=== PATIENT | male | born 1960 | race Caucasian/White ===

== ENCOUNTER 2024-11-15 08:10 | Emergency (ER) | payer MEDICAID, SELFPAY ==
[2024-11-15 08:49] VITALS: BP 113/74; PULSE 64; RESP 18; TEMP 36.5; O2SAT 97; BMI 29.1
--- NOTE | 2024-11-15 09:07 | PD.EDADULT ---
ED General RME/HPI General Chief complaint: Abdominal Pain Stated complaint: Abdominal pain left side, diarrhea Time Seen by Provider: 11/15/24 08:20 Arrival date/time: 11/15/24 08:10 Limitations: no limitations RME / HPI RME / HPI narrative: DR. DELCID MAIN ED EVALUATION: 64 year old male presents to the Emergency Department with complaint of left flank pain/ left abdomen pain onset 7 days. He states he has been Tylenol for pain with little relief. Associated symptoms include rectal pain, burning. PMHx: Diabetes Social Hx: No tobacco, alcohol, or substance use. Related Data Home Medications ?Medication ?Instructions ?Recorded ?Confirmed metformin 1,000 mg tablet 1,000 mg PO BID #0 tabs 11/25/13 12/20/19 (Glucophage) amlodipine 10 mg tablet 10 mg PO QDAY 12/20/19 12/20/19 lisinopril 20 1 tab PO QDAY 12/20/19 12/20/19 mg-hydrochlorothiazide 25 mg tablet tamsulosin 0.4 mg capsule 0.4 mg PO QDAY 12/20/19 12/20/19 Allergies Allergy/AdvReac Type Severity Reaction Status Date / Time No Known Allergies Allergy Verified 11/15/24 08:16 Review of Systems Review of Systems Systems Reviewed: All systems reviewed, normal except as documented Past Medical History Past Medical History CARDIAC: Positive Hypertension GENITOURINARY: Positive Benign Prostatic Hyperplasia ENDOCRINE: Positive Diabetes Mellitus Type 2 Social History SMOKING STATUS: Never smoker SUBSTANCE USE: does not use ALCOHOL: Never ED Exam General Limitations: Present no limitations General appearance: Present alert and in no apparent distress Head Head exam: Present atraumatic, normocephalic and normal inspection Eye Eye exam: Present normal appearance, PERRL and EOMI ENT ENT exam: Present normal exam, normal oropharynx and mucous membranes moist Neck Neck exam: Present normal inspection, full ROM and trachea midline Chest Chest inspection: Present normal inspection and symmetric chest wall rise Respiratory Respiratory exam: Present normal lung sounds bilaterally Cardiovascular Cardiovascular exam: Present regular rate, normal rhythm and normal heart sounds Abdominal Exam Abdominal exam: Present soft and normal bowel sounds Extremities Exam Extremities exam: Present normal inspection and full ROM Back Exam Back exam: Present normal inspection and full ROM Neurological Exam Neurological exam: Present alert, oriented X3 and CN II-XII intact Psychiatric Psychiatric exam: Present normal affect and normal mood Skin Skin exam: Present warm, dry, intact and normal color Course Quality Measures none Orders Category Date Time Status CT abdomen pelvis wo con Stat Exams 11/15/24 09:06 Completed Vital Signs Vital signs: Vital Signs Temperature 97.7 F 11/15/24 08:49 Pulse Rate 64 11/15/24 08:49 Respiratory Rate 18 11/15/24 08:49 Blood Pressure 113/74 11/15/24 08:49 Pulse Oximetry (%) 97 11/15/24 08:49 Oxygen Delivery Method Room Air 11/15/24 08:49 Discharge Plan Plan Patient Disposition: HOME (Self Care) Prescriptions/Referrals Prescriptions/Med Rec: No Action metformin [Glucophage] 1,000 MG tablet 1,000 mg PO BID Qty: 0 tamsulosin 0.4 mg Capsule 0.4 mg PO QDAY amlodipine 10 mg Tablet 10 mg PO QDAY lisinopril-hydrochlorothiazide 20-25 mg Tablet 1 tab PO QDAY Referrals: Woody Espinosa MD [Primary Care Provider] - In 1 week Problem List Clinical Impression: BPH (benign prostatic hyperplasia), Bloated abdomen Patient/Caregiver Discharge Instructions Education Materials: Benign Prostatic Hyperplasia, ED Excess Gas Print Language: Albanian Stand Alone Forms: [employer] Award Info., Patient Portal Info Letter MDM Clinical Information Provided by patient Medical Records Reviewed [facility] Meds/Rx Considered, not Ordered None Labs/Rad/Tests considered, not Ordered None Chronic Illness/Social Conditions Add or document further as needed: Diabetes EKG EKG not done Lab Interpretation Labs: none Imaging Radiology reports / interpretation(s): Procedure(s): CT abdomen pelvis wo con Accession Number(s): [id number] cc: Woody Espinosa MD; Alessandro Delcid MD; Gualberto Holland MD~ Examination: CT abdomen and pelvis without contrast. Coronal 3-D reconstructions. Sagittal 2-D reconstructions. Date and time of exam: November 15, 2024, 0932 hrs. Indications -: Left elbow pain beginning 4 days ago CTDI: vol (mGy): 8 DLP: (mGycm): 436 Technique: Axial images of the abdomen have been obtained, 3 mm slice thickness Intravenous contrast material has not been administered. Low dose protocols were performed. One or more of the following dose reduction techniques were used; automated exposure control, adjustment of the mA and/or KV according to patient size, use of iterative reconstruction technique. Findings: Diffuse fatty infiltration throughout the liver No splenic or pancreatic mass Contracted gallbladder. Normal adrenal glands. No renal or ureteral calculi, no hydronephrosis. Aorta normal size. Normal appendix. No bowel obstruction. No diverticulitis. Marked prostatomegaly, transverse dimension 6 cm Mild thickening of urinary bladder wall Large fat-containing left inguinal hernia. Grade 1 spondylolisthesis L5 on S1 Impression: No renal or ureteral calculi, no hydronephrosis Normal appendix Marked prostatomegaly Mild thickening of urinary bladder wall, likely early urinary tract outflow obstruction secondary to prostatomegaly Dictated By: Gualberto Holland MD Medication Administration(s) none Diagnosis Differential diagnosis: diverticulitis, kidney stone, prostatomegaly Most likely dx, and/or detailed dx discussion: BPH Bloated abdomen Dispositon Disposition: Discharge Home
== END 2024-11-15 12:17 | disposition home or self-care (01) ==
PROVIDERS: Emergency Provider Emergency Medicine; PCP Family Medicine
DX: N40.0 Benign prostatic hyperplasia without lower urinary tract symptoms (principal); R14.0 Abdominal distension (gaseous); E11.9 Type 2 diabetes mellitus without complications; K76.0 Fatty (change of) liver, not elsewhere classified; K40.90 Unilateral inguinal hernia, without obstruction or gangrene, not specified as recurrent; M43.17 Spondylolisthesis, lumbosacral region
CPT/HCPCS: 74176; 99284

== ENCOUNTER 2025-01-17 10:26 | Emergency (ER) | payer MEDICAID, SELFPAY ==
[2025-01-17 11:10] VITALS: BP 135/83; PULSE 59; RESP 16; TEMP 37.1; O2SAT 96; BMI 27.8
--- NOTE | 2025-01-17 11:37 | PD.EDRME ---
Rapid Medical Screening Exam RME Arrival date/time: 01/17/25 10:26 This is a 64-year-old male that comes into the emergency room with complaints of lower abdominal pain, pain with urination headache and feels itchy throughout his body sometimes. Patient has a history of high blood pressure, diabetes, and BPH. I have greeted and performed a focused initial assessment of this patient. Initial appropriate labs ordered at this time. A comprehensive ED assessment and evaluation of the patient and analysis of all test and completion of medical decision making process will be conducted by additional ED provider. Chief Complaint: General Adult/Misc Complain Time Seen by Provider: 01/17/25 11:08 Vital signs: Vital Signs Temperature 98.7 F 01/17/25 11:10 Pulse Rate 59 L 01/17/25 11:10 Respiratory Rate 16 01/17/25 11:10 Blood Pressure 135/83 H 01/17/25 11:10 Pulse Oximetry (%) 96 01/17/25 11:10 Oxygen Delivery Method Room Air 01/17/25 11:10
[2025-01-17] MEDS: IBUPROFEN TAB 400 MG TABLET 800 MG PO (11:50)
[2025-01-17] MEDS: ACETAMINOPHEN 500 MG TABLET 1000 MG PO (11:50)
[2025-01-17 12:01] LABS: Collection Type, Urine Voided; Squamous Epithelial Cell,Urine 0 /hpf (0-5); WBC,Urine 0 /hpf (0-5)
[2025-01-17 12:03] LABS: Basophils # (Auto) 0.1 Thou/mm3 (0.0-0.2); Basophils % (Auto) 1 % (0-2.5); Eosinophils # (Auto) 0.4 Thou/mm3 (0.0-0.5); Eosinophils % (Auto) 6 % (0-10); Hematocrit 40.3 % (41.0-53.0); Hemoglobin 13.4 g/dL (13.5-16.0); Immature Granulocytes Auto 0.01 Thou/mm3 (0.00-0.00); Lymphocytes # (Auto) 1.3 Thou/mm3 (1.0-4.8); Lymphocytes % (Auto) 19 % (10-50); Mean Corpuscular HGB Conc 33.3 g/dl (31.0-37.0); Mean Corpuscular Hemoglobin 30.4 pg (25.0-35.0); Mean Corpuscular Volume 91 fL (80-100); Monocytes # (Auto) 0.6 Thou/mm3 (0.0-0.8); Monocytes % (Auto) 9 % (0-12); Neutrophils # (Auto) 4.7 Thou/mm3 (1.8-7.7); Neutrophils % (Auto) 67 % (37-80); Nucleated Red Blood Cell # 0.00 Thou/mm3 (0.00-0.00); Nucleated Red Blood Cell % 0 /100 WBC (0); Platelet Count 248 Thou/mm3 (140-440); RDW Standard Deviation 40.7 fL (35.1-43.9); Red Blood Count 4.41 Miln/mm3 (4.50-5.90); White Blood Count 7.1 Thou/mm3 (3.8-10.6)
[2025-01-17 12:29] LABS: Bilirubin,Urine Negative (Negative); Blood,Urine Negative (Negative); Clarity,Urine Clear (Clear/Hazy); Color,Urine Lt-Yellow (Lt Yel-Yel); Culture Indicated,Urine Not Indicated; Glucose, Urine 4+ (Negative); Ketones,Urine Negative (Negative); Leukocyte Esterase,Urine Negative (Negative); Nitrite,Urine Negative (Negative); PH,Urine 6.0 (5.0-7.0); Protein,Urine Negative (Neg - Trace); RBC,Urine < 1 /hpf (0-3); Specific Gravity,Urine 1.024 (1.001-1.035); Urobilinogen,Urine Negative mg/dL (0.0-1.0)
[2025-01-17 12:31] LABS: Alanine Aminotransferase 22 U/L (10-49); Albumin, Serum 4.7 gm/dL (3.4-4.8); Albumin/Globulin Ratio 1.6 (1.2-2.2); Alkaline Phosphatase 93 U/L (46-116); Anion Gap 10 (7-16); Aspartate Amino Transferase 25 U/L (0-34); BUN/Creatinine Ratio 23 Ratio (12-20); Bilirubin,Total 0.8 mg/dL (0.3-1.2); Blood Urea Nitrogen 27 mg/dL (9-23); Calcium 10.2 mg/dL (8.3-10.6); Calcium (Corrected) 10.2 mg/dL (8.5-10.1); Carbon Dioxide 23.8 mMol/L (20.0-31.0); Chloride 103 mMol/L (98-107); Creatinine (Component) 1.2 mg/dL (0.6-1.3); Estimated Creatinine Clearance 59.1 mL/min (>60); Globulin 3.0 gm/dL (2.3-3.5); Glucose 240 mg/dL (74-106); Lipase 60 U/L (12-53); Osmolality,Calculated 286 (275-295); Potassium 5.0 mMol/L (3.4-5.1); Sodium 137 mMol/L (136-145); Total Protein 7.7 gm/dL (5.7-8.2); eGFR > 60 See Note
--- NOTE | 2025-01-17 13:46 | XR_ITS ---
Examination: CT brain head without contrast. 2-D sagittal coronal reconstructions Date and time of exam:January 17, 2025 1502 hrs. Indications: Headaches beginning last night CTDI: vol (mGy):48.8 DLP: (mGycm):920 Technique: Multiple CT axial sections of the brain have been obtained, 5 mm slice thickness. Contrast has not been administered. 2-D sagittal, coronal reconstructions have been obtained Low dose protocols were performed. One or more of the following dose reduction techniques were used; automated exposure control, adjustment of the mA and/or KV according to patient size, use of iterative reconstruction technique. Findings: No significant ventricular enlargement. Intra-axial or extra-axial hemorrhage density is not seen. No mass effect or midline shift Basal cisterns are not remarkable. Fourth ventricle is midline. Cranial vault intact. Impression: Negative for acute hemorrhage, mass effect or midline shift
--- NOTE | 2025-01-17 13:47 | EDNOTE_ITS ---
<Statement entered by Mary Hines MD - 01/18/25 06:24> As co-signing physician, I was present and available for consult prn. I concur with the plan and care as documented by the midlevel provider. ED General RME/HPI General Chief complaint: General Adult/Misc Complain Stated complaint: BARCLAY, infection in prostate, abd. pain Time Seen by Provider: 01/17/25 11:08 Arrival date/time: 01/17/25 10:26 RME / HPI RME / HPI narrative: 64-year-old male patient with significant history of hypertension diabetes BPH, came in for evaluation regarding headache. Patient's been having headache for 8 days, posterior location, severity is 7 out of 10 and described as pulsating. Patient also complained of dysuria and pelvic pain and itchiness for several weeks, it comes and goes. Denies any fever denies any vomiting denies any other complaints no medications taken prior to arrival. Denies any fever also. Currently taking Flomax for BPH. Related Data Home Medications ?Medication ?Instructions ?Recorded ?Confirmed metformin 1,000 mg tablet 1,000 mg PO BID #0 tabs 11/0312/20/19 (Glucophage) amlodipine 10 mg tablet 10 mg PO QDAY 12/20/1912/19 lisinopril 20 1 tab PO QDAY 12/20/1912/19 mg-hydrochlorothiazide 25 mg tablet tamsulosin 0.4 mg capsule 0.4 mg PO QDAY 12/20/1912/02 Previous Rx's ?Medication ?Instructions ?Recorded ibuprofen 800 mg tablet 800 mg PO Q8H PRN pain #30 t abs 01/17/25 phenazopyridine 200 mg tablet 200 mg PO TID 6 doses #6 tabs 01/17/25 (Pyridium) Allergies Allergy/AdvReac Type Severity Reaction Status Date / Time No Known Allergies Allergy Verified 01/17/25 10:32 Review of Systems Review of Systems Narrative Review of Systems: Review of system reviewed and within normal limits except mentioned in HPI ED Exam Narrative Physical exam: VITAL SIGNS: Reviewed. GENERAL APPEARANCE: Alert and interactive, follows commands, no acute distress, HEAD AND FACE: Non-traumatic. ENT: PERRL, pink conjunctivitis, eyelid no trauma, Mucous membrane moist. NECK: Supple, nontender, no nuchal rigidity. CHEST: No tenderness, no crepitus, no paradoxical movement, no retractions. LUNGS: Clear, well ventilated, symmetric, no rales, no wheezing, no ronchi, no stridor, good breath sounds bilaterally. HEART: Regular rate, regular rhythm, no murmur, no gallops. ABDOMEN: Soft, positive bowel sounds, nondistended, no guarding, nontender, no rebound, no masses, RECTAL: Deferred. GENITAL: Genital exam was done by me with male nurse around all the time, I did not notice any tenderness to the testicle, no redness no swelling, no masses palpated NEUROLOGICAL: Gross motor function intact sensory function intact, Appropriate for age. MUSCULOSKELETAL: low back nontender, full range of motion. EXTREMITIES: Nontender, full range of motion. SKIN: Color pink, dry, no rash, no lacerations, no abrasions, no contusions. LYMPHATICS: Deferred. Course Quality Measures none Orders Category Date Time Status CT head/brain wo con Stat Exams 01/17/25 13:46 Completed CBC Stat Lab 01/17/25 11:51 Completed Comprehensive Metabolic Panel Stat Lab 01/17/25 11:51 Completed Lipase Stat Lab 01/17/25 11:51 Completed Urinalysis, C/S if Indicated Stat Lab 01/17/25 11:43 Completed Acetaminophen Tab [Tylenol ES Tab] Med 01/17/25 11:37 Discontinued 1,000 mg PO X1 ONE Ibuprofen Tab [Motrin Tab] Med 01/17/25 11:37 Discontinued 800 mg PO X1 ONE Vital Signs Vital signs: Vital Signs Temperature 98.7 F 01/17/25 11:10 Pulse Rate 59 L 01/17/25 11:10 Respiratory Rate 16 01/17/25 11:10 Blood Pressure 135/83 H 01/17/25 11:10 Pulse Oximetry (%) 96 01/17/25 11:10 Oxygen Delivery Method Room Air 01/17/25 11:10 Discharge Plan Plan Patient Disposition: HOME (Self Care) Discharge Disposition comment: stable Prescriptions/Referrals Prescriptions/Med Rec: New ibuprofen 800 mg tablet 800 mg PO Q8H PRN (Reason: pain) Qty: 30 0RF phenazopyridine [Pyridium] 200 mg tablet 200 mg PO TID Qty: 6 0RF No Action metformin [Glucophage] 1,000 MG tablet 1,000 mg PO BID Qty: 0 tamsulosin 0.4 mg Capsule 0.4 mg PO QDAY amlodipine 10 mg Tablet 10 mg PO QDAY lisinopril-hydrochlorothiazide 20-25 mg Tablet 1 tab PO QDAY Referrals: Woody Espinosa MD [Primary Care Provider] - In 1 week Problem List Clinical Impression: Dysuria, Headache Patient/Caregiver Discharge Instructions Discharge Activity: activity as tolerated Education Materials: Dysuria Additional Instructions: Thank you for the opportunity for serving you today. You are stable for discharged . You are advised to: Follow-up with your PCP in 1 to 2 days Return to ED for worsening of symptoms Increase oral fluids Take medication as prescribed Print Language: Beninese Stand Alone Forms: [email or web address] Award Info., Patient Portal Info Letter SLIME/ASIM Supervising Physician SLIME/ASIM Supervising Physician: MD Flora [facility] Narrative [facility] hospital course: 64-year-old male patient with significant history of hypertension diabetes BPH, came in for evaluation regarding headache. Patient's been having headache for 8 days, posterior location, severity is 7 out of 10 and described as pulsating. Patient also complained of dysuria and pelvic pain and itchiness for several weeks, it comes and goes. Denies any fever denies any vomiting denies any other complaints no medications taken prior to arrival. Denies any fever also. Currently taking Flomax for BPH. CT scan of the head came back unremarkable. Patient's laboratory workup also came back normal urinalysis no sign of UTI. Results discussed with the patient. Patient appears nontoxic and hemodynamically stable .Decision to discharge the patient. The patient/family was given an opportunity to ask questions and understood their discharge instructions. Discharge instructions specifically included follow up provider and time frame, current and/or new medications and possible side effects, indications for sooner follow up or return to the emergency department, and the expected course of current diagnosis. Patient reports feeling better as well and giving evidence of significant clinical improvement, I believe patient is now a candidate for discharge. Medication Administration(s) Medication Administration History Discontinued Medications Acetaminophen (Acetaminophen 500 Mg Tablet) 1,000 mg PO X1 ONE Stop: 01/17/25 11:38 Last Admin: 01/17/25 11:50 Dose: 1,000 mg Documented By: AMY Ibuprofen (Ibuprofen Tab 400 Mg Tablet) 800 mg PO X1 ONE Stop: 01/17/25 11:38 Last Admin: 01/17/25 11:50 Dose: 800 mg Documented By: AMY
[2025-01-17 13:49] VITALS: BP 141/82; PULSE 55; RESP 16; TEMP 36.9; O2SAT 99
[2025-01-17 15:18] VITALS: BP 143/78; PULSE 65; RESP 17; TEMP 36.7; O2SAT 98
== END 2025-01-17 16:47 | disposition home or self-care (01) ==
PROVIDERS: Nurse Practitioner Family; Emergency Provider Emergency Medicine; PCP Family Medicine
DX: R51.9 Headache, unspecified (principal); R30.0 Dysuria; R10.2 Pelvic and perineal pain; I10 Essential (primary) hypertension; E11.9 Type 2 diabetes mellitus without complications; N40.0 Benign prostatic hyperplasia without lower urinary tract symptoms
CPT/HCPCS: 36415; 70450; 80053; 81001; 83690; 85025; 99283; A9270

== ENCOUNTER 2025-01-23 18:18 | Inpatient (IN) | payer MEDICAID, SELFPAY ==
[2025-01-23 18:19] VITALS: BMI 29.4
[2025-01-23 20:37] VITALS: BP 130/79; PULSE 60; RESP 20; TEMP 37.2; O2SAT 95
--- NOTE | 2025-01-23 20:45 | PD.EDRME ---
Rapid Medical Screening Exam RME Arrival date/time: 01/23/25 18:18 64M with history of HTN, DM, and Parkinson's presents to ED because PCP sent him here for abnormal kidney lab values. Patient does not know specifically what. Patient has had normal intake/output. Patient just feels tired and has a BARCLAY. Chief Complaint: General Adult/Misc Complain Vital signs: Vital Signs Temperature 99.0 F 01/23/25 20:37 Pulse Rate 60 01/23/25 20:37 Respiratory Rate 20 01/23/25 20:37 Blood Pressure 130/79 01/23/25 20:37 Pulse Oximetry (%) 95 01/23/25 20:37 Oxygen Delivery Method Room Air 01/23/25 20:37
[2025-01-23 21:30] LABS: Basophils # (Auto) 0.0 Thou/mm3 (0.0-0.2); Basophils % (Auto) 0 % (0-2.5); Eosinophils # (Auto) 0.4 Thou/mm3 (0.0-0.5); Eosinophils % (Auto) 5 % (0-10); Hematocrit 34.9 % (41.0-53.0); Hemoglobin 11.6 g/dL (13.5-16.0); Immature Granulocytes Auto 0.01 Thou/mm3 (0.00-0.00); Lymphocytes # (Auto) 1.3 Thou/mm3 (1.0-4.8); Lymphocytes % (Auto) 18 % (10-50); Mean Corpuscular HGB Conc 33.2 g/dl (31.0-37.0); Mean Corpuscular Hemoglobin 30.6 pg (25.0-35.0); Mean Corpuscular Volume 92 fL (80-100); Monocytes # (Auto) 0.8 Thou/mm3 (0.0-0.8); Monocytes % (Auto) 11 % (0-12); Neutrophils # (Auto) 4.8 Thou/mm3 (1.8-7.7); Neutrophils % (Auto) 65 % (37-80); Nucleated Red Blood Cell # 0.00 Thou/mm3 (0.00-0.00); Nucleated Red Blood Cell % 0 /100 WBC (0); Platelet Count 197 Thou/mm3 (140-440); RDW Standard Deviation 42.5 fL (35.1-43.9); Red Blood Count 3.79 Miln/mm3 (4.50-5.90); White Blood Count 7.4 Thou/mm3 (3.8-10.6)
[2025-01-23 21:49] LABS: Collection Type, Urine Clean Catch; Squamous Epithelial Cell,Urine 0 /hpf (0-5)
[2025-01-23 21:51] LABS: Alanine Aminotransferase 17 U/L (10-49); Albumin, Serum 4.5 gm/dL (3.4-4.8); Albumin/Globulin Ratio 1.5 (1.2-2.2); Alkaline Phosphatase 87 U/L (46-116); Anion Gap 13 (7-16); Aspartate Amino Transferase 18 U/L (0-34); BUN/Creatinine Ratio 14 Ratio (12-20); Bilirubin,Total 0.5 mg/dL (0.3-1.2); Blood Urea Nitrogen 63 mg/dL (9-23); Calcium 9.3 mg/dL (8.3-10.6); Calcium (Corrected) 9.3 mg/dL (8.5-10.1); Carbon Dioxide 17.6 mMol/L (20.0-31.0); Chloride 110 mMol/L (98-107); Creatine Kinase 263 U/L (34-171); Creatinine (Component) 4.4 mg/dL (0.6-1.3); Estimated Creatinine Clearance 16.6 mL/min (>60); Globulin 3.1 gm/dL (2.3-3.5); Glucose 128 mg/dL (74-106); Osmolality,Calculated 301 (275-295); Potassium 5.8 mMol/L (3.4-5.1); Sodium 141 mMol/L (136-145); Total Protein 7.6 gm/dL (5.7-8.2); eGFR 14 See Note
[2025-01-23 21:55] LABS: Bilirubin,Urine Negative (Negative); Blood,Urine Negative (Negative); Clarity,Urine Clear (Clear/Hazy); Color,Urine Lt-Yellow (Lt Yel-Yel); Culture Indicated,Urine Not Indicated; Glucose, Urine 3+ (Negative); Ketones,Urine Negative (Negative); Leukocyte Esterase,Urine Negative (Negative); Nitrite,Urine Negative (Negative); PH,Urine 5.5 (5.0-7.0); Protein,Urine Negative (Neg - Trace); RBC,Urine 1 /hpf (0-3); Specific Gravity,Urine 1.013 (1.001-1.035); Urobilinogen,Urine Negative mg/dL (0.0-1.0); WBC,Urine 2 /hpf (0-5)
[2025-01-23 22:01] LABS: Amphetamine/Methamp Scrn,U Negative (Negative); Barbiturate Screen,Urine Negative (Negative); Benzodiazepines Screen,Urine Negative (Negative); Benzoylecgonine Screen, Ur Negative (Negative); Fentanyl Screen,Urine Negative (Negative); Opiate Screen,Urine Negative (Negative); THC Screen,Urine Negative (Negative)
[2025-01-24] VITALS (12 sets, daily range): BP systolic 115–149; BP diastolic 53–88; PULSE 52–98; RESP 14–27; TEMP 35.7–37.8; O2SAT 95–100
--- NOTE | 2025-01-24 00:06 | PD.EDRECHK ---
ED Recheck Abnl Lab Rx-RME/HPI General Chief Complaint: General Adult/Misc Complain Stated Complaint: ABNORMAL LABS YESTERDAY AT PMD OFFICE Arrival date/time: 01/23/25 18:18 RME / HPI RME / HPI narrative: 01/23/25 18:18 64M with history of HTN, DM, and Parkinson's presents to ED because PCP sent him here for abnormal kidney lab values. Patient does not know specifically what. Patient has had normal intake/output. Patient just feels tired and has a BARCLAY. DR. RIBEIRO MAIN ED EVALUATION: 64 y/o male with Hx Parkinson's Disease, HTN, Benign Prostatic Hyperplasia, and DM presents to ED due to abnormal blood tests with PCP showing a decline in kidney function. Patient reports generalized weakness and abdominal pain. PCP advised patient to come to ED for further evaluation and treatment. No other concerns or complaints expressed at this time. Related Data Home Medications ?Medication ?Instructions ?Recorded ?Confirmed metformin 1,000 mg tablet 1,000 mg PO BID #0 tabs 11/25/13 12/20/19 (Glucophage) amlodipine 10 mg tablet 10 mg PO QDAY 12/20/19 12/20/19 lisinopril 20 1 tab PO QDAY 12/20/19 12/20/19 mg-hydrochlorothiazide 25 mg tablet tamsulosin 0.4 mg capsule 0.4 mg PO QDAY 12/20/19 12/20/19 Previous Rx's ?Medication ?Instructions ?Recorded ibuprofen 800 mg tablet 800 mg PO Q8H PRN pain #30 tabs 01/17/25 phenazopyridine 200 mg tablet 200 mg PO TID 6 doses #6 tabs 01/17/25 (Pyridium) Allergies Allergy/AdvReac Type Severity Reaction Status Date / Time No Known Allergies Allergy Verified 01/23/25 18:22 Review of Systems Review of Systems Systems Reviewed: All systems reviewed, normal except as documented Past Medical History Past Medical History NEUROLOGIC: Positive Parkinson's Disease CARDIAC: Positive Hypertension GENITOURINARY: Positive Benign Prostatic Hyperplasia ENDOCRINE: Positive Diabetes Mellitus Type 2 ED Exam Narrative Physical exam: Generally patient is alert and in no obvious distress, heart regular rate and rhythm, lungs clear to auscultation equal bilaterally, abdomen soft bowel sounds present nondistended nontender no bladder distention, extremities show no peripheral edema neurologic exam no focal motor or sensory deficits Course Quality Measures none Orders Category Date Time Status EKG (ED ONLY) *Do not use* NOW Care 01/23/25 23:49 Active EKG (ED Only) Stat Exams 01/23/25 23:49 Ordered ABG [Arterial Blood Gas] Stat Lab 01/24/25 00:21 Ordered Beta Hydroxybutyrate Stat Lab 01/24/25 00:20 Ordered CBC Stat Lab 01/23/25 21:01 Completed CMP [Comprehensive Metabolic Panel] Stat Lab 01/23/25 21:01 Completed Creatine Kinase Stat Lab 01/23/25 21:01 Completed Drug Screen,Urine Stat Lab 01/23/25 21:35 Completed Lactic Acid [Lactate (Lactic Acid)] Stat Lab 01/24/25 00:20 Ordered Urinalysis, C/S if Indicated Stat Lab 01/23/25 21:35 Completed ALBUTEROL RT 0.5ml [Proventil Rt 0.5ml] Med 01/24/25 00:32 Once 10 mg INH X1 ONE Calcium Gluc/Ns 1000MG Ivpb [Calcium Gluc/Ns 1000mg Med 01/24/25 00:23 Active Ivpb] 1,000 mg in 50 ml IV X1 Dextrose 50% Syr [D50w Syringe Abboject] Med 01/24/25 00:23 Once 50 ml IVP X1 ONE Insulin Regular Med 01/24/25 00:23 Once 5 unit IV X1 ONE Sodium Bicarb 8.4% 50ml Vial* Med 01/24/25 00:28 Once 50 meq IV X1 ONE Sodium Chloride Rt Lora 0.9% [NS Rt Lora 0.9%] Med 01/24/25 00:32 Ordered 3 ml INH PRN PRN Vital Signs Vital signs: Vital Signs Temperature 99.0 F 01/23/25 20:37 Pulse Rate 60 01/23/25 20:37 Respiratory Rate 20 01/23/25 20:37 Blood Pressure 130/79 01/23/25 20:37 Pulse Oximetry (%) 95 01/23/25 20:37 Oxygen Delivery Method Room Air 01/23/25 20:37 Recheck / Abnormal Lab / Rx MDM Narrative MDM Narrative:: Scribe Attestation: Suzy Lam, am scribing for and in the presence of Dr. Ribeiro. Provider Notation: Although this document has been carefully reviewed, there may still be some phonetic and other typographical errors. These errors are purely grammatical due to imperfections in the software program and should not be construed in any way to? compromise the substance of the patient's medical care during this visit. I interpreted all labs. Creatinine tonight is 4.4 and creatinine 1 week ago was 1.2. Potassium 1 week ago was 5.0 and potassium tonight is 5.8. Patient will receive 1 amp of D50 IV, 5 units regular insulin IV, 10 mg of continuous albuterol and 1000 mg of calcium gluconate IV and 1 amp of sodium bicarb IV. I discussed this with the hospitalist and patient will be admitted the hospital for further treatment and evaluation for his acute renal failure with hyperkalemia Patient data External records reviewed:: [facility] previous records (Reviewed prior ED records from 01/17/25. Patient was seen for Dysuria.) Clinical information provided by:: patient Social determinants that could affect healthcare access:: none Patient has the following chronic illnesses:: Parkinson's Disease, Hypertension, Benign Prostatic Hyperplasia, Diabetes Mellitus Type 2 How is presenting disease/condition affected by chronic disease/condition?: exacerbated by Evaluation data The following diagnostics were reviewed and interpreted by me:: lab results and EKG tracing(s) Lab and/or radiology exams considered but not ordered:: None Interpretation Summary: None Medications / Prescriptions Medications or Prescriptions considered but not ordered:: None Medication administrations:: Medication Administration History Albuterol (Albuterol Rt 2.5 Mg/0.5 Ml Nebu) 10 mg INH X1 ONE Stop: 01/24/25 00:33 Dextrose (Dextrose 50%-Water Inj 50 Ml Syringe) 50 ml IVP X1 ONE Stop: 01/24/25 00:24 Calcium Gluconate/Sodium Chloride (Calcium Gluc/Ns 1000mg Ivpb) 1,000 mg in 50 mls @ 50 mls/hr IV X1 ONE Stop: 01/24/25 01:22 Insulin Human Regular (Insulin Hum Regular 1 Unit/0.01 Ml (Per Unit)) 5 unit IV X1 ONE Stop: 01/24/25 00:24 Sodium Bicarbonate (Sodium Bicarb Inj 8.4% 1 Meq/Ml 50 Ml Vial) 50 meq IV X1 ONE Stop: 01/24/25 00:29 Sodium Chloride (Sodium Chloride Rt Lora 0.9% 3 Ml Nebu) 3 ml INH PRN PRN PRN Reason: SOLN Stop: 02/23/25 00:31 See above if any. Consultations Consultation(s) initiated? (list below): Yes Consultation #1 (Physician, Specialty, Details): Hospitalist made aware of the patient?s HPI, PMHx, lab and/or radiology results. Treatment plan was discussed. Will admit for further evaluation and management. Accepts patient for admission. Time: 00:08 Diagnosis Recheck Differential Diagnosis: other Most likely diagnosis given after review of the tests above:: None Admission Indicated Admission indicated?: indicated Admission Request Was there a request for admission?: Yes Admission Attestation Admission request attestation: Discussed case with [] from Hospitalist service regarding admission. Discussed patients ED course, exam findings, labs, and radiology results. The Hospitalist [agrees,declines] to accept the patient for admission. Disposition Plan Disposition Plan: Admit Critical Care Time Critical Care Time Critical Care Time: Yes Total Critical Care Time (min.): 35 Attestation: Excluding other billable procedures Discharge Plan Plan Patient Disposition: Admit Acute Care w/in Hospital Prescriptions/Referrals Prescriptions/Med Rec: No Action metformin [Glucophage] 1,000 MG tablet 1,000 mg PO BID Qty: 0 tamsulosin 0.4 mg Capsule 0.4 mg PO QDAY amlodipine 10 mg Tablet 10 mg PO QDAY lisinopril-hydrochlorothiazide 20-25 mg Tablet 1 tab PO QDAY ibuprofen 800 mg tablet 800 mg PO Q8H PRN (Reason: pain) Qty: 30 0RF phenazopyridine [Pyridium] 200 mg tablet 200 mg PO TID Qty: 6 0RF Referrals: No Primary/Family,Physician [Primary Care Provider] - In 1 week Problem List Clinical Impression: Acute renal failure, Hyperkalemia Patient/Caregiver Discharge Instructions Print Language: Emirati Stand Alone Forms: [employer] Award Info., Patient Portal Info Letter
[2025-01-24] MEDS: ALBUTEROL RT 2.5 MG/0.5 ML NEBU 10 MG INH (00:45)
[2025-01-24] MEDS: SODIUM CHLORIDE RT SOL 0.9% 3 ML NEBU INH (00:46)
--- NOTE | 2025-01-24 00:52 | EKG_ITS ---
[facility] Test Date: 2025-01-24 Pat Name: EDGAR ARREAGA Department: Room: - Gender: Male [employer]: : 1960 Requested By: Angelito Frost Order Number: [id number] Reading MD: Angelito Frost Measurements Intervals [place] Rate: 51 P: 92 CT: 190 QRS: -4 QRSD: 94 T: 34 QT: 401 QTc: 370 Interpretive Statements SINUS BRADYCARDIA No previous ECG available for comparison /[id number]/S0/[id number]
[2025-01-24 01:01] LABS: Allen Test Performed/OK; Base Excess -10 (-3-3); HCO3 16 mEq/L (20-26); Inspired O2, VO2 Liters 6 L/min; Inspired Oxygen, FIO2 21 %; O2 Saturation 100 % (91-98); PCO2 33 mmHg (32.0-48.0); PO2 206 mmHg (83-108); Puncture Site Left Radial; pH, Arterial 7.29 (7.35-7.45)
[2025-01-24] MEDS: SODIUM BICARB INJ 8.4% 1 mEq/ML 50 ML VIAL 50 MEQ IV (01:03)
[2025-01-24] MEDS: INSULIN HUM REGULAR 1 UNIT/0.01 ML (PER UNIT) 5 UNIT IV (01:03)
[2025-01-24] MEDS: DEXTROSE 50%-WATER INJ 50 ML SYRINGE IVP (01:03)
--- NOTE | 2025-01-24 01:10 | PD.RESHP ---
Documentation for date of: 01/24/25 [facility] History of Present Illness History of present illness: (patient is Czech-speaking, information obtained from interview by Dr. Santoyo) Rd Garcia is a 64-year-old M with a PMH of Parkinson's disease, HTN, DM, and BPH who presents today after PCP sent him here for abnormal kidney lab values. Patient did not have any specific complaints outside of fatigue and headache. He endorses some suprapubic pain and abdominal pain but denies any other urinary symptoms and reports that he has been urinating fine. He also denies having any palpitations, N/V/D, or leg swelling. Of note, patient says that he recently started taking a new medication for his Parkinson's disease (trihexyphenidyl) beginning about 2 months ago. In the ED, vitals showed: BP 130/79 HR 60 RR 20 Temp 99.0 SpO2 95% on room air ED Course: CBC showed low Hgb 11.6 but was otherwise WNL. ABG showed low pH 7.29, low HCO3 16, and ABG base excess -10. CMP showed high K 5.8, slightly high chloride 110, low CO2 17.6, BUN 63, creatinine 4.4, eGFR 14, slightly high blood glucose 128, high osmolality 301, and high total CK 263. UA showed 3+ glucose but was otherwise WNL. UDS was negative. Imaging: EKG showed sinus bradycardia (HR 51, normal QTc 370) . In the ED, patient was given inhaled albuterol 10 mg, inhaled sodium chloride 3 mL, IV dextrose 50 mL x1, IV regular insulin 5 U x1, IV sodium bicarbonate 50 mEq x1, IV calcium gluconate/sodium chloride 1000 mg in 50 mL, IV albumin 12.5 gm, and PO kayexalate 15 gm x1 and started on IV heparin 5,000 U, IV LR maintenance fluid @ 75 mL/hr, and home medication PO ropinirole 0.5 mg BID. Patient was admitted for the work-up and management of acute renal failure, hyperkalemia, and non-anion gap metabolic acidosis. Nephrology has been consulted for assistance in work-up of the etiology of the acute renal failure as well as management. Review of Systems Review of Systems Narrative Review of Systems: General: Endorses fatigue. Denies fevers or chills HEENT: Denies congestion or sore throat Heart: Denies chest pain or palpitations Lungs: Denies shortness of breath or cough Abdomen: Endorses abdominal pain that is primarily suprapubic. Denies nausea, vomiting, constipation, diarrhea, or blood in stool Genitourinary: Denies frequency, urgency, dysuria, or hematuria Neurology: Endorses resting tremor. Denies any changes in vision or difficulty speaking Review of systems otherwise negative except what is mentioned above. Past Medical History Past Medical History Comments PMH COMMENT: PMH: Parkinson's disease, HTN, DM, and BPH PSH: none Medications: amlodipine, atorvastatin, trihexyphenidyl Allergies: NKDA FH: deferred SH: deferred Exam Vital Signs Temp Pulse Resp BP Pulse Ox O2 Del Method 100.0 F 52 L 19 116/70 100 Aerosol Mask 01/24/25 00:54 01/24/25 00:54 01/24/25 00:54 01/24/25 00:54 01/24/25 00:54 01/24/25 00:54 Narrative Exam Physical Exam: General: A/O x3, no acute distress. Skin: Warm, dry, intact, no obvious rash. Head: Normocephalic, atraumatic. Eyes: EOMI. Anicteric, vision grossly intact. Ears: No ear pain, no ear discharge, Hearing grossly intact. Nose: No nasal discharge. Mouth/Throat: Oral mucosa moist. No obvious lesions in oropharynx. Neck: Neck supple, non-tender, no cervical lymphadenopathy. Cardiovascular: Bradycardic rate and rhythm, no murmur, no JVD or carotid bruits. +S1/S2. Respiratory: Bilateral lungs are clear to auscultation and percussion, respirations unlabored, no crackles, no wheezing. No accessory muscle use. Gastrointestinal: Suprapubic and perineal tenderness to palpation. Soft, non-distended, no palpable masses. No guarding or rebound tenderness. Peristalsis present. Extremities: Symmetrical, no significant deformities. No edema, no cyanosis, no clubbing. 2+ radial pulse bilaterally, 2+ posterior tibial pulse bilaterally. Neuro: Resting tremor in hands and arms, more pronounced on left side. Conversant, moving all extremities. Psychiatric: Cooperative, appropriate affect. Results: Labs 01/24/25 04:47 01/24/25 01:05 Labs: Short CBC 01/23/25 Range/Units 21:01 WBC 7.4 (3.8-10.6) Thou/mm3 Hgb 11.6 L (13.5-16.0) g/dL Hct 34.9 L (41.0-53.0) % Plt Count 197 D (140-440) Thou/mm3 BMP 01/23/25 21:01 Sodium 141 Potassium 5.8 H Chloride 110 H Carbon Dioxide 17.6 L BUN 63 H Creatinine 4.4 H* D Glucose 128 H Calcium 9.3 Cardiac Enzymes 01/23/25 Range/Units 21:01 Total Creatine Kinase 263 H (34-171) U/L Liver Function 01/23/25 Range/Units 21:01 Total Bilirubin 0.5 (0.3-1.2) mg/dL AST 18 (0-34) U/L ALT 17 (10-49) U/L Alkaline Phosphatase 87 (46-116) U/L Albumin 4.5 (3.4-4.8) gm/dL Urine 01/23/25 Range/Units 21:35 Urine Color Lt-Yellow (Lt Yel-Yel) Urine Clarity Clear (Clear/Hazy) Urine pH 5.5 (5.0-7.0) Ur Specific [place] 1.013 (1.001-1.035) Urine Protein Negative (Neg - Trace) Urine Glucose (UA) 3+ A (Negative) ABG Interpretation ABG results: 01/24/25 00:55 ABG pH 7.29 L ABG pCO2 33 ABG pO2 206 H ABG HCO3 16 L ABG O2 Saturation 100 H ABG Base Excess -10 L Quality Measures Quality Measures none Medications Home Medications and Allergies Home Medications ?Medication ?Instructions ?Recorded ?Confirmed ?Type metformin 1,000 mg tablet 1,000 mg PO BID #0 tabs 11/25/13 12/20/19 History (Glucophage) amlodipine 10 mg tablet 10 mg PO QDAY 12/20/19 12/20/19 History lisinopril 20 1 tab PO QDAY 12/20/19 12/20/19 History mg-hydrochlorothiazide 25 mg tablet tamsulosin 0.4 mg capsule 0.4 mg PO QDAY 12/20/19 12/20/19 History Allergies Allergy/AdvReac Type Severity Reaction Status Date / Time No Known Allergies Allergy Verified 01/23/25 18:22 Visit Medications Calcium Gluconate/Sodium Chloride (Calcium Gluc/Ns 1000mg Ivpb) 1,000 mg in 50 mls @ 50 mls/hr IV X1 ONE Stop: 01/24/25 01:22 Sodium Chloride (Sodium Chloride Rt Lora 0.9% 3 Ml Nebu) 3 ml INH PRN PRN PRN Reason: SOLN Stop: 02/23/25 00:31 Last Admin: 01/24/25 00:46 Dose: 3 ml Discontinued Medications Albuterol (Albuterol Rt 2.5 Mg/0.5 Ml Nebu) 10 mg INH X1 ONE Stop: 01/24/25 00:33 Last Admin: 01/24/25 00:45 Dose: 10 mg Dextrose (Dextrose 50%-Water Inj 50 Ml Syringe) 50 ml IVP X1 ONE Stop: 01/24/25 00:24 Last Admin: 01/24/25 01:03 Dose: 50 ml Insulin Human Regular (Insulin Hum Regular 1 Unit/0.01 Ml (Per Unit)) 5 unit IV X1 ONE Stop: 01/24/25 00:24 Last Admin: 01/24/25 01:03 Dose: 5 unit Sodium Bicarbonate (Sodium Bicarb Inj 8.4% 1 Meq/Ml 50 Ml Vial) 50 meq IV X1 ONE Stop: 01/24/25 00:29 Last Admin: 01/24/25 01:03 Dose: 50 meq Assessment & Plan Plan Rd Garcia is a 64-year-old M with a PMH of Parkinson's disease, HTN, DM, and BPH who presents today after PCP sent him here for abnormal kidney lab values. Patient was admitted for the work-up and management of acute renal failure, hyperkalemia, and non-anion gap metabolic acidosis. Nephrology has been consulted for assistance in work-up of the etiology of the acute renal failure as well as management. #Acute renal failure, likely 2/2 BPH or urinary retention from trihexyphenidyl #BPH Upon admission, creatinine 4.4 (baseline 0.7-1.2), BUN 64 (was 27 a week ago), eGFR 16 (was >60 a week ago) Current working explanation is a postrenal obstructive etiology 2/2 BPH or urinary retention side effect from trihexyphenidyl (patient says he started it 2 months ago) Diagnostic Inquiry -Ordered urine electrolytes -Ordered bladder scan -Consulted nephrology, awaiting recommendations Treatment Plan -Fluid resuscitation: IV LR maintenance fluid @ 75 mL/hr -IV albumin 12.5 gm x1 -Restarted home medication: PO tamsulosin 0.4 mg qD -Monitor renal panel -Avoid nephrotoxic agents (aminoglycosides, NSAIDs, radiographic contrast) -Adjust medication dosing based on patient's impaired renal function -Holding home medication: lisinopril -Strict I's&O's + Salas catheter placement #Hyperkalemia Admission K 5.8, asymptomatic without EKG changes s/p IV calcium gluconate 1000 mg in 50 mL x1 Diagnostic Inquiry -No current recommendation Treatment Plan -PO Kayexalate 15 gm x1 -Inhaled albuterol 10 mg x1 -IV regular insulin 5 U x1 w/ D50 #Non-anion gap metabolic acidosis, likely 2/2 uremia Admission ABG acidic pH 7.29 with low HCO3 16, anion gap 13 Lactic acid and beta-hydroxybutyrate/acetoacetate WNL, making uremia (BUN 63) the most likely cause of the non-anion gap metabolic acidosis Diagnostic Inquiry -No current recommendation Treatment Plan -Same management as acute renal failure above #Other medical problems #Parkinson's disease -Restarted home medication: PO carbidopa/levodopa 1 tab TID -Holding home medication: trihexyphenidyl #HTN -Holding home medication: lisinopril #HLD -Restarted home medication: PO atorvastatin 20 mg qHS #T2DM -Insulin sliding scale -Holding home diabetes medications Hospital Management: Disposition: undergoing work-up and management of acute renal failure, hyperkalemia, and non-anion gap metabolic acidosis Diet: Renal GI Prophylaxis: none Bowel Prophylaxis: Senna DVT Prophylaxis: Heparin CODE STATUS: Full Code I have examined the patient and conferred with my attending, Dr. Burton, and my senior resident, Dr. Santoyo, regarding them. Angelito Frost DO PGY-1 Internal Medicine Attending Provider Attestation/Addendum I have examined the patient, reviewed labs and imaging findings, discussed the case with the resident(s), and reviewed entered orders. I agree with the plan of care as outlined in this note, with these additional summaries/recommendations: After examination of the patient and review of the clinical data, I feel that this patient needs admission to the hospital for further treatment and evaluation. Patient is a 64-year-old male with a medical history of Parkinson's disease, diabetes mellitus type 2, hyperlipidemia, and BPH who presents to [facility] emergency department on 01/24/2025 with chief complaint of being referred by PCP for abnormal labs. Patient seen at bedside. He has no acute complaints except for abdominal discomfort. Patient diagnosed with acute renal failure. On admission creatinine 4.4 and BUN 63. Creatinine 6 days prior 1.2. Most likely etiologies include post renal versus intrarenal. Patient has history of prostatomegaly and takes anticholinergic medicine trihexyphenidyl as well as baclofen which both can cause urinary retention. We will order stat Salas catheter and monitor urinary output. Other etiologies intrarenal given acute changes possibly related to medications. Start IV fluids, monitor urinary output, and avoid nephrotoxic agents. Renally dose medications. Consult nephrology, recommendations appreciated. Order renal ultrasound. Hyperkalemia present most likely secondary to NOEMY. Patient will be given temporizing measures and Kayexalate. Follow-up repeat potassium. Okay to resume home carbidopa levodopa and hold other home medicines for now. We will touch base with neurology in AM for medication reconciliation. Start insulin sliding scale with Accu-Cheks for diabetes mellitus type 2. Target blood sugar of 140-180 while hospitalized. Diabetic and renal diet for now. Resume home antihypertensives. Patient updated on the plan and in agreement. All questions answered to satisfaction. Please see residents note for additional details and management. Dr. Josephine MD
[2025-01-24 01:12] LABS: Lactate (Lactic Acid) 1.5 mMol/L (0.4-2.0)
[2025-01-24 01:16] LABS: Beta Hydroxybutyrate 0.2 mmol/L (<0.6)
[2025-01-24] MEDS: CALCIUM GLUC/NS 1000MG IVPB 1,000 MG/50 ML BAG 50 MG IV (01:25)
[2025-01-24] MEDS: HEPARIN SOD INJ 5000 UNIT/ML VIAL SC ×3 (01:30→21:15)
[2025-01-24] MEDS: RINGERS LACTATED 1000 ML 1,000 ML 75 ML IV ×3 (01:34→15:44)
[2025-01-24] MEDS: ALBUMIN HUMAN 25% IVPB 12.5 GM/50 ML BTL IV (02:27)
[2025-01-24] MEDS: SOD POLYSTYRENE SULFON SUSP 15 GM/60 ML BTL PO ×2 (02:31→14:34)
[2025-01-24 03:09] LABS: Albumin, Serum 4.3 gm/dL (3.4-4.8); Anion Gap 13 (7-16); BUN/Creatinine Ratio 15 Ratio (12-20); Blood Urea Nitrogen 60 mg/dL (9-23); Calcium 9.0 mg/dL (8.3-10.6); Calcium (Corrected) 9.0 mg/dL (8.5-10.1); Carbon Dioxide 17.2 mMol/L (20.0-31.0); Chloride 111 mMol/L (98-107); Creatinine (Component) 4.0 mg/dL (0.6-1.3); Estimated Creatinine Clearance 18.2 mL/min (>60); Glucose 129 mg/dL (74-106); Osmolality,Calculated 300 (275-295); Phosphorous 5.8 mg/dL (2.4-5.1); Potassium 5.7 mMol/L (3.4-5.1); Sodium 141 mMol/L (136-145); eGFR 16 See Note
[2025-01-24 05:22] LABS: Basophils # (Auto) 0.0 Thou/mm3 (0.0-0.2); Basophils % (Auto) 0 % (0-2.5); Eosinophils # (Auto) 0.2 Thou/mm3 (0.0-0.5); Eosinophils % (Auto) 4 % (0-10); Hematocrit 32.7 % (41.0-53.0); Hemoglobin 10.8 g/dL (13.5-16.0); Immature Granulocytes Auto 0.01 Thou/mm3 (0.00-0.00); Lymphocytes # (Auto) 0.9 Thou/mm3 (1.0-4.8); Lymphocytes % (Auto) 16 % (10-50); Mean Corpuscular HGB Conc 33.0 g/dl (31.0-37.0); Mean Corpuscular Hemoglobin 30.5 pg (25.0-35.0); Mean Corpuscular Volume 92 fL (80-100); Monocytes # (Auto) 0.6 Thou/mm3 (0.0-0.8); Monocytes % (Auto) 12 % (0-12); Neutrophils # (Auto) 3.7 Thou/mm3 (1.8-7.7); Neutrophils % (Auto) 68 % (37-80); Nucleated Red Blood Cell # 0.00 Thou/mm3 (0.00-0.00); Nucleated Red Blood Cell % 0 /100 WBC (0); Platelet Count 182 Thou/mm3 (140-440); RDW Standard Deviation 43.5 fL (35.1-43.9); Red Blood Count 3.54 Miln/mm3 (4.50-5.90); White Blood Count 5.4 Thou/mm3 (3.8-10.6)
[2025-01-24 05:39] LABS: Chloride,Urine Random 51.9 mMol/L (55.0-125.0); Creatinine,Random Urine 78 mg/dL (30-125); Potassium,Urine Random 34 mMol/L (12-62); Sodium,Urine Random 57.4 mMol/L (20.0-110.0)
[2025-01-24 05:43] LABS: Cardiac Risk Estimate 2.6 RATIO (4.0-6.7); Cholesterol 88 mg/dL (132-200); HDL Cholesterol 34 mg/dL (40-60); LDL Cholesterol,Calculated 24 mg/dL (0-130); Magnesium 2.5 mg/dL (1.6-2.6); Phosphorous 6.0 mg/dL (2.4-5.1); Triglycerides 149 mg/dL (30-150)
[2025-01-24] MEDS: CARBIDOPA/LEVODOPA 25/100 MG TABLET 1 TAB PO ×3 (06:14→21:15)
--- NOTE | 2025-01-24 07:30 | PC.NURSE ---
report received and care assumed. Pt here due to abnormal labs yesterday and admitted for acute kidney injury. Ambulates self to and from bathroom
--- NOTE | 2025-01-24 07:48 | PC.NURSE ---
attempted X 3 to call report and nurse unavailable
--- NOTE | 2025-01-24 08:30 | ESPR_ITS ---
<Statement entered by Onur Rosas MD - 01/24/25 16:13> Senior Resident Attestation: I supervised/discussed management plan with communications marketing intern physician Dr. Stanley, and was involved in the care of this patient. I personally saw and examined the patient and discussed the assessment and plan with the entire medicine team, including my attending. I agree with the assessment and plan as documented. Patient's care was discussed with attending physician, Dr. Mustafa. Onur Rosas MD PGY-3. Documentation for date of: 01/24/25 Exam Vital Signs Temp Pulse Resp BP Pulse Ox O2 Del Method 97.8 F 65 18 119/53 L 96 Room Air 01/24/25 08:15 01/24/25 08:15 01/24/25 08:15 01/24/25 08:15 01/24/25 08:15 01/24/25 08:15 Narrative Exam General: A/O x3, no acute distress. Skin: Warm, dry, intact, no obvious rash. Head: Normocephalic, atraumatic. Eyes: EOMI. Anicteric, vision grossly intact. Ears: No ear pain, no ear discharge, Hearing grossly intact. Nose: No nasal discharge. Mouth/Throat: Oral mucosa moist. No obvious lesions in oropharynx. Neck: Neck supple, non-tender, no cervical lymphadenopathy. Cardiovascular: RRR, no murmur, no JVD or carotid bruits. +S1/S2. Respiratory: Bilateral lungs are clear to auscultation and percussion, respirations unlabored, no crackles, no wheezing. No accessory muscle use. Gastrointestinal: Suprapubic tenderness to palpation. Soft, non-distended, no palpable masses. No guarding or rebound tenderness. Extremities: Symmetrical, no significant deformities. No edema, no cyanosis, no clubbing. 2+ radial pulse bilaterally, 2+ posterior tibial pulse bilaterally. Neuro: Resting tremor in hands and arms, more pronounced on Right side. Conversant, moving all extremities. Psychiatric: Cooperative, appropriate affect. Objective Labs 01/25/25 05:29 01/25/25 05:29 Labs: Laboratory Results - last 24 hr 01/23/25 01/23/25 01/24/25 21:01 21:35 00:55 WBC 7.4 RBC 3.79 L Hgb 11.6 L Hct 34.9 L MCV 92 MCH 30.6 MCHC 33.2 RDW Std Deviation 42.5 Plt Count 197 D Neut % (Auto) 65 Lymph % (Auto) 18 [place] % (Auto) 11 Eos % (Auto) 5 Baso % (Auto) 0 Neut # (Auto) 4.8 Lymph # (Auto) 1.3 [place] # (Auto) 0.8 Eos # (Auto) 0.4 Baso # (Auto) 0.0 Immature Gran # (Auto) 0.01 H Absolute Nucleated RBC 0.00 Immature Gran % 0 Nucleated RBC % 0 Puncture Site Left Radial ABG pH 7.29 L ABG pCO2 33 ABG pO2 206 H ABG HCO3 16 L ABG O2 Saturation 100 H ABG Base Excess -10 L Oxygen Liter Flow 6 FiO2 21 Sodium 141 Potassium 5.8 H Chloride 110 H Carbon Dioxide 17.6 L Anion Gap 13 BUN 63 H Creatinine 4.4 H* D Estim Creat Clear Calc 16.6 L eGFR 14 L* BUN/Creatinine Ratio 14 Glucose 128 H Calculated Osmolality 301 H Lactic Acid Calcium 9.3 Corrected Calcium 9.3 Phosphorus Magnesium Total Bilirubin 0.5 AST 18 ALT 17 Alkaline Phosphatase 87 Total Creatine Kinase 263 H Total Protein 7.6 Albumin 4.5 Globulin 3.1 Albumin/Globulin Ratio 1.5 Triglycerides Cholesterol LDL Cholesterol, Calc HDL Cholesterol Cholesterol/HDL Ratio Beta-Hydroxybutyrate/Acetoacetate Ur Collection Type Clean Catch Urine Color Lt-Yellow Urine Clarity Clear Urine pH 5.5 Ur Specific [place] 1.013 Urine Protein Negative Urine Glucose (UA) 3+ A Urine Ketones Negative Urine Blood Negative Urine Nitrite Negative Urine Bilirubin Negative Urine Urobilinogen (Auto) Negative Ur Leukocyte Esterase Negative Urine RBC 1 Urine WBC 2 Ur Squamous Epith Cells 0 Urine Bacteria None Ur Culture Indicated? Not Indicated Ur Random Creatinine Ur Random Sodium Ur Random Potassium Ur Random Chloride Urine Opiates Screen Negative Urine Fentanyl Screen Negative Ur Barbiturates Screen Negative U Amphetamin/Meth Scrn Negative U Benzodiazepines Scrn Negative U Cocaine Metab Screen Negative U Marijuana (THC) Screen Negative 01/24/25 01/24/25 01/24/25 01:05 04:43 04:47 WBC 5.4 RBC 3.54 L Hgb 10.8 L Hct 32.7 L MCV 92 MCH 30.5 MCHC 33.0 RDW Std Deviation 43.5 Plt Count 182 Neut % (Auto) 68 Lymph % (Auto) 16 [place] % (Auto) 12 Eos % (Auto) 4 Baso % (Auto) 0 Neut # (Auto) 3.7 Lymph # (Auto) 0.9 L [place] # (Auto) 0.6 Eos # (Auto) 0.2 Baso # (Auto) 0.0 Immature Gran # (Auto) 0.01 H Absolute Nucleated RBC 0.00 Immature Gran % 0 Nucleated RBC % 0 Puncture Site ABG pH ABG pCO2 ABG pO2 ABG HCO3 ABG O2 Saturation ABG Base Excess Oxygen Liter Flow FiO2 Sodium 141 Potassium 5.7 H Chloride 111 H Carbon Dioxide 17.2 L Anion Gap 13 BUN 60 H Creatinine 4.0 H Estim Creat Clear Calc 18.2 L eGFR 16 L BUN/Creatinine Ratio 15 Glucose 129 H Calculated Osmolality 300 H Lactic Acid 1.5 Calcium 9.0 Corrected Calcium 9.0 Phosphorus 5.8 H 6.0 H Magnesium 2.5 Total Bilirubin AST ALT Alkaline Phosphatase Total Creatine Kinase Total Protein Albumin 4.3 Globulin Albumin/Globulin Ratio Triglycerides 149 Cholesterol 88 L LDL Cholesterol, Calc 24 HDL Cholesterol 34 L Cholesterol/HDL Ratio 2.6 L Beta-Hydroxybutyrate/Acetoacetate 0.2 Ur Collection Type Urine Color Urine Clarity Urine pH Ur Specific [place] Urine Protein Urine Glucose (UA) Urine Ketones Urine Blood Urine Nitrite Urine Bilirubin Urine Urobilinogen (Auto) Ur Leukocyte Esterase Urine RBC Urine WBC Ur Squamous Epith Cells Urine Bacteria Ur Culture Indicated? Ur Random Creatinine 78 Ur Random Sodium 57.4 Ur Random Potassium 34 Ur Random Chloride 51.9 L Urine Opiates Screen Urine Fentanyl Screen Ur Barbiturates Screen U Amphetamin/Meth Scrn U Benzodiazepines Scrn U Cocaine Metab Screen U Marijuana (THC) Screen ABG Interpretation ABG results: 01/24/25 00:55 ABG pH 7.29 L ABG pCO2 33 ABG pO2 206 H ABG HCO3 16 L ABG O2 Saturation 100 H ABG Base Excess -10 L Quality Measures Quality Measures none Assessment & Plan Assessment Current Active Medications: Generic Name Dose Route Start Last Admin Trade Name Freq PRN Reason Stop Dose Admin Acetaminophen 650 mg 01/24/25 00:43 Acetaminophen 325 Mg Tablet PO 02/23/25 00:42 Q6H PRN PAIN SCALE 1-3 (mild Atorvastatin Calcium 20 mg 01/24/25 21:00 Atorvastatin Calcium 20 Mg Tablet PO 02/23/25 20:59 HS DANIELLE Carbidopa/Levodopa 1 tab 01/24/25 06:00 01/24/25 06:14 Carbidopa/Levodopa 25/100 Mg Tablet PO 02/23/25 05:59 1 tab TID DANIELLE Administration Dextrose 25 ml 01/24/25 02:28 Dextrose 50%-Water Inj 50 Ml Syringe IV 02/23/25 02:27 Q15MIN PRN BG 50-70 responsive npo pt Dextrose 50 ml 01/24/25 02:28 Dextrose 50%-Water Inj 50 Ml Syringe IV 02/23/25 02:27 Q15MIN PRN BG <50 OR BG <70 & pt unresponsive Glucagon 1 mg 01/24/25 02:28 Glucagon Inj 1 Mg Vial IM Q15MIN PRN BG <70, and no IV access Heparin Sodium (Porcine) 5,000 unit 01/24/25 09:30 Heparin Sod Inj 5000 Unit/Ml Vial SC 02/07/25 00:59 Q8HR DANIELLE Lactated Ringer's 1,000 mls @ 75 mls/hr 01/24/25 00:45 01/24/25 01:34 Lactated Ringers IV 02/23/25 00:44 75 mls/hr .[id number] DANIELLE Administration Insulin Human Lispro 0 unit 01/24/25 07:30 01/24/25 07:49 Insulin Lispro (Admelog) 1 Unit/0.01 Ml Unit SC 02/23/25 07:29 Not Given ACHS DANIELLE Protocol Ondansetron HCl 4 mg 01/24/25 00:43 Ondansetron Inj 2 Mg/Ml Inj 2 Ml IVP 02/23/25 00:42 Q6H PRN NAUSEA OR VOMITING Protocol Ropinirole HCl 0.5 mg 01/24/25 02:45 01/24/25 03:34 Ropinirole Hcl 0.25 Mg Tablet PO 02/23/25 02:44 0.5 mg BID DANIELLE Administration Sennosides 1 tab 01/24/25 00:43 Senna Tablet PO 02/23/25 00:42 QDAY PRN constipation Protocol Sodium Chloride 3 ml 01/24/25 00:32 01/24/25 00:46 Sodium Chloride Rt Lora 0.9% 3 Ml Nebu INH 02/23/25 00:31 3 ml PRN PRN Administration SOLN Tamsulosin HCl 0.4 mg 01/24/25 09:00 Tamsulosin Hcl 0.4 Mg Capsule PO 02/23/25 08:59 QDAY DANIELLE Plan 64M with PMH of Parkinson's disease, HTN, DM, and BPH who presents today after PCP sent him here for abnormal kidney lab values. Patient was admitted for the work-up and management of acute renal failure, hyperkalemia, and non-anion gap metabolic acidosis. Nephrology has been consulted for assistance in work-up of the etiology of the acute renal failure as well as management. #Acute renal failure #BPH Upon admission, creatinine 4.4 (baseline 0.7-1.2), BUN 64 (was 27 a week ago), eGFR 16 (was >60 a week ago) Differentials include postrenal obstructive etiology 2/2 BPH or urinary retention side effect from trihexyphenidyl and RTA (patient says he started it 2 months ago) Urine electrolytes: Cr 78, Na 57.4, K 34, Cl 51.9 Urinalysis shows no proteinuria or hematuria. Urine chloride on the lower side consistent with prerenal azotemia CTAP shows marked prostatomegaly and mild thickening of urinary bladder wall. Obstruction secondary to the patient's prostatomegaly suspected early urinary tract outflow obstruction secondary to the patient's prostatomegaly Plan: - Consulted nephrology, appreciate recs - Pending bladder scan - Pending renal ultrasound/prostate ultrasound - Fluid resuscitation: IV LR maintenance fluid @ 75 mL/hr - Monitor urine output closely - Continue home tamsulosin 0.4 mg qD - Continue Bicitra - Ordered renal panel q12hr - Avoid nephrotoxic agents (aminoglycosides, NSAIDs, radiographic contrast) - Adjust medication dosing based on patient's impaired renal function - Holding home medication: lisinopril - Strict I's&O's + Salas catheter placement #Hyperkalemia Admission K 5.8, asymptomatic without EKG changes s/p IV calcium gluconate 1000 mg in 50 mL x1 in the ED PO Kayexalate 15 gm x1, Inhaled albuterol 10 mg x1, IV regular insulin 5 U x1 w/ D50 given K has improved to 5.3 Plan: -CTM #Non-anion gap metabolic acidosis Admission ABG acidic pH 7.29 with low HCO3 16, anion gap 13 Lactic acid and beta-hydroxybutyrate/acetoacetate WNL, differentials: uremia (BUN 63) vs drug induced RTA Plan: -Same management as acute renal failure above #Parkinson's disease Chronic. Recently started on trihexyphenidyl Significant resting tremor of the right hand. Plan: -Continue home medication: PO carbidopa/levodopa 1 tab TID -Holding home medication: trihexyphenidyl #HTN Last measurement: 125/76 Plan: -CTM -Holding home medication: lisinopril #HLD Plan: -Continue home medication: PO atorvastatin 20 mg qHS #T2DM Plan: -Insulin sliding scale -Holding home diabetes medications Hospital Management: Disposition: Admit to tele Diet: Renal GI Prophylaxis: none Bowel Prophylaxis: Senna DVT Prophylaxis: Heparin CODE STATUS: Full Code Plan discussed with my attending, Dr. Mustafa, and my senior resident, Dr. Alison Stanley, DO PGY-1 Attending Provider Attestation/Addendum I Yue Mustafa MD reviewed the note and agree with the resident's assessment & plan with modifications/additions/exceptions as below. I have personally reviewed labs, imaging, home meds/prior records, examined the patient, formulated and discussed management plan with the IM team. A 64-year-old male with history of DM, parkinsonism, HTN, BPH sent to ED after finding abnormal labs by his PCP. Patient noted to have significantly elevated creatinine and potassium levels. Admitted for acute renal failure likely postrenal in etiology due to large BPH. Continue IV fluid resuscitation, repeat renal panel every 12 hours, obtain CT abdomen/pelvis to evaluate for hydronephrosis and etiology of acute renal failure. Will administer hyperkalemia management as per protocol..
--- NOTE | 2025-01-24 09:04 | PC.NURSE ---
CALLED REPORT TO [facility] NURSE WEBER AND SHE STATES WITH ELEVATED POTASSIUM PT NEEDS TO BE ON TELE. WILL CALL HOSPITALIST
--- NOTE | 2025-01-24 09:10 | PC.NURSE ---
CALLED HOSPITALIST DR. BEAR THAT MED/SURG NURSE CONCERNED WITH ELEVATED POTASSIUM AND NEED FOR CARDIAC MONITORING. PER DOCTER WHE WILL CHANGE PT TO TELEMETRY
--- NOTE | 2025-01-24 09:21 | PC.NURSE ---
pharmacy called for requip
[2025-01-24] MEDS: TAMSULOSIN HCL 0.4 MG CAPSULE PO ×2 (09:23→13:51)
[2025-01-24 09:45] LABS: Basophils # (Auto) 0.0 Thou/mm3 (0.0-0.2); Basophils % (Auto) 1 % (0-2.5); Eosinophils # (Auto) 0.3 Thou/mm3 (0.0-0.5); Eosinophils % (Auto) 5 % (0-10); Hematocrit 33.4 % (41.0-53.0); Hemoglobin 11.0 g/dL (13.5-16.0); Immature Granulocytes Auto 0.01 Thou/mm3 (0.00-0.00); Lymphocytes # (Auto) 0.9 Thou/mm3 (1.0-4.8); Lymphocytes % (Auto) 15 % (10-50); Mean Corpuscular HGB Conc 32.9 g/dl (31.0-37.0); Mean Corpuscular Hemoglobin 30.3 pg (25.0-35.0); Mean Corpuscular Volume 92 fL (80-100); Monocytes # (Auto) 0.6 Thou/mm3 (0.0-0.8); Monocytes % (Auto) 10 % (0-12); Neutrophils # (Auto) 4.1 Thou/mm3 (1.8-7.7); Neutrophils % (Auto) 70 % (37-80); Nucleated Red Blood Cell # 0.00 Thou/mm3 (0.00-0.00); Nucleated Red Blood Cell % 0 /100 WBC (0); Platelet Count 194 Thou/mm3 (140-440); RDW Standard Deviation 42.9 fL (35.1-43.9); Red Blood Count 3.63 Miln/mm3 (4.50-5.90); White Blood Count 5.8 Thou/mm3 (3.8-10.6)
[2025-01-24 10:06] LABS: Alanine Aminotransferase < 7 U/L (10-49); Albumin, Serum 4.3 gm/dL (3.4-4.8); Albumin/Globulin Ratio 1.5 (1.2-2.2); Alkaline Phosphatase 83 U/L (46-116); Anion Gap 14 (7-16); Aspartate Amino Transferase 16 U/L (0-34); BUN/Creatinine Ratio 15 Ratio (12-20); Bilirubin,Total 0.6 mg/dL (0.3-1.2); Blood Urea Nitrogen 52 mg/dL (9-23); Calcium 9.6 mg/dL (8.3-10.6); Calcium (Corrected) 9.6 mg/dL (8.5-10.1); Carbon Dioxide 19.0 mMol/L (20.0-31.0); Chloride 108 mMol/L (98-107); Creatinine (Component) 3.5 mg/dL (0.6-1.3); Estimated Creatinine Clearance 20.8 mL/min (>60); Globulin 2.9 gm/dL (2.3-3.5); Glucose 216 mg/dL (74-106); Osmolality,Calculated 302 (275-295); Potassium 5.3 mMol/L (3.4-5.1); Sodium 141 mMol/L (136-145); Total Protein 7.2 gm/dL (5.7-8.2); eGFR 19 See Note
--- NOTE | 2025-01-24 10:19 | PC.NURSE ---
GIVEN MEAL TRAY EARLIER AND ATE 100%
--- NOTE | 2025-01-24 11:07 | XR_ITS ---
Examination: CT abdomen and pelvis without contrast. Coronal 3-D reconstructions. Sagittal 2-D reconstructions. Date and time of exam:January 24, 2025, 1134 hrs. Indications: Generalized abdominal pain beginning 2 weeks ago, history frequent urination CTDI: vol (mGy): 8.66 DLP: (mGycm): 496 Technique: Axial images of the abdomen have been obtained, 3 mm slice thickness Intravenous contrast material has not been administered. Low dose protocols were performed. One or more of the following dose reduction techniques were used; automated exposure control, adjustment of the mA and/or KV according to patient size, use of iterative reconstruction technique. Findings: Comparison November 15, 2024. Mild enlargement cardiac contour Liver is mildly irregular contour. No gallstones. Spleen not enlarged No pancreatic or adrenal mass. No renal or ureteral calculi, no hydronephrosis. Aorta normal size. Normal appendix. No bowel obstruction. Minimal thickening of urinary bladder wall Significant prostatomegaly transverse dimension 6.5 cm Grade 1 spondylolisthesis L5 on S1 with advanced degenerative disc disease L5-S1 Impression: Suspect primary hepatocellular disease Marked prostatomegaly Mild thickening of urinary bladder wall, consider early urinary tract outflow obstruction secondary to the patient's prostatomegaly
--- NOTE | 2025-01-24 11:09 | PD.RESCONSUL ---
HPI Data of Consult Consult date: 01/24/25 Requesting Physician: Felix Burton MD Admitting Provider: Felix Burton MD Attending Provider: Felix Burton MD Primary Care Provider: Physician No Primary/Family Consult Narrative Reason for consult: NOEMY History of present illness: Mr. Garcia is a 64 yo M with a hx of parkinsons (on trihexphenidyl), t2dm (dx > 20 years ago), HTN, and BPH who presented to the ED after pt was notified by pcp for abnormal labs with c/f noemy. Pt reports that he lopez general fatigue and mild headaches. ROS negative for nause, vomiting, diarrhea, edema, chest pain, shortness of breath he denies frequent nsaids use or recent contranst studies. He has never seen a structural fitter. Social Hx: pt works in the [employer], frequently in the sun. In the ED, vitals showed: BP 130/79 HR 60 RR 20 Temp 99.0 SpO2 95% on room air ED Course: ABG showed low pH 7.29, low HCO3 16, and ABG base excess -10. CMP showed high K 5.8, slightly high chloride 110, low CO2 17.6, BUN 63, creatinine 4.4, eGFR 14, and high total CK 263. UA showed 3+ glucose UDS was negative. EKG: sinus bradycardia (HR 51, normal QTc 370) . In the ED, patient was given inhaled albuterol 10 mg, inhaled sodium chloride 3 mL, IV dextrose 50 mL x1, IV regular insulin 5 U x1, IV sodium bicarbonate 50 mEq x1, IV calcium gluconate/sodium chloride 1000 mg in 50 mL, IV albumin 12.5 gm, and PO kayexalate 15 gm x1 and started on IV heparin 5,000 U, IV LR maintenance fluid @ 75 mL/hr, and home medication PO ropinirole 0.5 mg BID. 01/24/2025 Patient admitted, Nephology consulted for noemy, pt seen and examined in the ED, pt has tremors in UE, reports that he works in the [employer] but hydrates regularly while working in the sun. hyperkalemia now wnl Cr 2.9 BUN 52 query prerenal noemy likely 2/2 dehydration, f/u labs pending renal ultrasound cc:: cc: Felix Burton MD Review of Systems Review of Systems Narrative Review of Systems: as per HPI Exam Vital Signs Temp Pulse Resp BP Pulse Ox O2 Del Method 97.9 F 58 L 20 122/69 97 Room Air 01/24/25 10:33 01/24/25 10:33 01/24/25 10:33 01/24/25 10:33 01/24/25 10:33 01/24/25 10:33 Narrative Exam GENERAL: no acute distress, AAO x3, comfortably laying in bed, resting tremor HEENT: Head AT/ NC. Mucous membranes moist. dry. NECK: Supple, no lymphadenopathy, CARDIOVASCULAR: slightly bradycardic, RR. Normal S1/S2, No m/r/g. No pitting edema of bilateral LEs. RESPIRATORY: CTAB. No wheezing, rhonchi, crackles. GASTROINTESTINAL: Abdomen soft, non tender no palpable masses. Bowel sounds present MUSCULOSKELETAL:? No cyanosis or edema, no visible joint swelling. NEUROLOGICAL: CN II-XII grossly intact. No focal deficits. Sensation intact, symmetric. BUE resting tremors (pill rolling hx of parkinsons) gait not assessed. PSYCHIATRIC: Awake and alert, not agitated, normal mood and affect. SKIN: No obvious rashes, no jaundice, normal turgor. Results Labs 01/25/25 05:29 01/25/25 05:29 Labs: Short CBC 01/23/25 01/24/25 01/24/25 Range/Units 21:01 04:47 09:04 WBC 7.4 5.4 5.8 (3.8-10.6) Thou/mm3 Hgb 11.6 L 10.8 L 11.0 L (13.5-16.0) g/dL Hct 34.9 L 32.7 L 33.4 L (41.0-53.0) % Plt Count 197 D 182 194 (140-440) Thou/mm3 BMP 01/23/25 01/24/25 01/24/25 21:01 01:05 09:04 Sodium 141 141 141 Potassium 5.8 H 5.7 H 5.3 H Chloride 110 H 111 H 108 H Carbon Dioxide 17.6 L 17.2 L 19.0 L BUN 63 H 60 H 52 H Creatinine 4.4 H* D 4.0 H 3.5 H D Glucose 128 H 129 H 216 H D Calcium 9.3 9.0 9.6 Cardiac Enzymes 01/23/25 Range/Units 21:01 Total Creatine Kinase 263 H (34-171) U/L Liver Function 01/23/25 01/24/25 01/24/25 Range/Units 21:01 01:05 09:04 Total Bilirubin 0.5 0.6 (0.3-1.2) mg/dL AST 18 16 (0-34) U/L ALT 17 < 7 L (10-49) U/L Alkaline Phosphatase 87 83 (46-116) U/L Albumin 4.5 4.3 4.3 (3.4-4.8) gm/dL Urine 01/23/25 Range/Units 21:35 Urine Color Lt-Yellow (Lt Yel-Yel) Urine Clarity Clear (Clear/Hazy) Urine pH 5.5 (5.0-7.0) Ur Specific [place] 1.013 (1.001-1.035) Urine Protein Negative (Neg - Trace) Urine Glucose (UA) 3+ A (Negative) ABG Interpretation ABG results: 01/24/25 00:55 ABG pH 7.29 L ABG pCO2 33 ABG pO2 206 H ABG HCO3 16 L ABG O2 Saturation 100 H ABG Base Excess -10 L Quality Measures Quality Measures VTE prophylaxis Medications Home Medications and Allergies Home Medications ?Medication ?Instructions ?Recorded ?Confirmed ?Type metformin 1,000 mg tablet 1,000 mg PO BID #0 tabs 11/25/13 12/20/19 History (Glucophage) amlodipine 10 mg tablet 10 mg PO QDAY 12/20/19 12/20/19 History lisinopril 20 1 tab PO QDAY 12/20/19 12/20/19 History mg-hydrochlorothiazide 25 mg tablet Allergies Allergy/AdvReac Type Severity Reaction Status Date / Time No Known Allergies Allergy Verified 01/23/25 18:22 Visit Medications Acetaminophen (Acetaminophen 325 Mg Tablet) 650 mg PO Q6H PRN PRN Reason: PAIN SCALE 1-3 (mild Stop: 02/23/25 00:42 Atorvastatin Calcium (Atorvastatin Calcium 20 Mg Tablet) 20 mg PO HS DANIELLE Stop: 02/23/25 20:59 Carbidopa/Levodopa (Carbidopa/Levodopa 25/100 Mg Tablet) 1 tab PO TID DANIELLE Stop: 02/23/25 05:59 Last Admin: 01/24/25 06:14 Dose: 1 tab Dextrose (Dextrose 50%-Water Inj 50 Ml Syringe) 25 ml IV Q15MIN PRN PRN Reason: BG 50-70 responsive npo pt Stop: 02/23/25 02:27 Dextrose (Dextrose 50%-Water Inj 50 Ml Syringe) 50 ml IV Q15MIN PRN PRN Reason: BG <50 OR BG <70 & pt unresponsive Stop: 02/23/25 02:27 Glucagon (Glucagon Inj 1 Mg Vial) 1 mg IM Q15MIN PRN PRN Reason: BG <70, and no IV access Heparin Sodium (Porcine) (Heparin Sod Inj 5000 Unit/Ml Vial) 5,000 unit SC Q8HR DANIELLE Stop: 02/07/25 00:59 Last Admin: 01/24/25 09:22 Dose: 5,000 unit Lactated Ringer's (Lactated Ringers) 1,000 mls @ 75 mls/hr IV .[id number] [facility] Stop: 02/23/25 00:44 Last Admin: 01/24/25 01:34 Dose: 75 mls/hr Insulin Human Lispro (Insulin Lispro (Admelog) 1 Unit/0.01 Ml Unit) 0 unit SC [facility]; Protocol Stop: 02/23/25 07:29 Last Admin: 01/24/25 07:49 Dose: Not Given Ondansetron HCl (Ondansetron Inj 2 Mg/Ml Inj 2 Ml) 4 mg IVP Q6H PRN; Protocol PRN Reason: NAUSEA OR VOMITING Stop: 02/23/25 00:42 Ropinirole HCl (Ropinirole Hcl 0.25 Mg Tablet) 0.5 mg PO BID DANIELLE Stop: 02/23/25 02:44 Last Admin: 01/24/25 10:18 Dose: 0.5 mg Sennosides (Senna Tablet) 1 tab PO QDAY PRN; Protocol PRN Reason: constipation Stop: 02/23/25 00:42 Sodium Chloride (Sodium Chloride Rt Lora 0.9% 3 Ml Nebu) 3 ml INH PRN PRN PRN Reason: SOLN Stop: 02/23/25 00:31 Last Admin: 01/24/25 00:46 Dose: 3 ml Tamsulosin HCl (Tamsulosin Hcl 0.4 Mg Capsule) 0.4 mg PO QDAY DANIELLE Stop: 02/23/25 08:59 Last Admin: 01/24/25 09:23 Dose: 0.4 mg Discontinued Medications Albuterol (Albuterol Rt 2.5 Mg/0.5 Ml Nebu) 10 mg INH X1 ONE Stop: 01/24/25 00:33 Last Admin: 01/24/25 00:45 Dose: 10 mg Dextrose (Dextrose 50%-Water Inj 50 Ml Syringe) 50 ml IVP X1 ONE Stop: 01/24/25 00:24 Last Admin: 01/24/25 01:03 Dose: 50 ml Heparin Sodium (Porcine) (Heparin Sod Inj 5000 Unit/Ml Vial) 5,000 unit SC Q8HR DANIELLE Stop: 02/07/25 00:59 Last Admin: 01/24/25 01:30 Dose: 5,000 unit Calcium Gluconate/Sodium Chloride (Calcium Gluc/Ns 1000mg Ivpb) 1,000 mg in 50 mls @ 50 mls/hr IV X1 ONE Stop: 01/24/25 01:22 Last Infusion: 01/24/25 02:31 Dose: Infused Albumin Human (Albuminar-25 Ivpb) 12.5 gm in 50 mls @ 50 mls/hr IV X1 ONE Stop: 01/24/25 01:58 Last Infusion: 01/24/25 03:35 Dose: Infused Insulin Human Regular (Insulin Hum Regular 1 Unit/0.01 Ml (Per Unit)) 5 unit IV X1 ONE Stop: 01/24/25 00:24 Last Admin: 01/24/25 01:03 Dose: 5 unit Sodium Bicarbonate (Sodium Bicarb Inj 8.4% 1 Meq/Ml 50 Ml Vial) 50 meq IV X1 ONE Stop: 01/24/25 00:29 Last Admin: 01/24/25 01:03 Dose: 50 meq Sodium Polystyrene Sulfonate (Sod Polystyrene Sulfon Susp 15 Gm/60 Ml Btl) 15 gm PO X1 ONE Stop: 01/24/25 02:28 Last Admin: 01/24/25 02:31 Dose: 15 gm Assessment & Plan Plan 64M with PMH of Parkinson's disease, HTN, DM, and BPH who presents today after PCP sent him here for abnormal kidney lab values. Patient was admitted for the work-up and management of acute renal failure, hyperkalemia now resolved, and non-anion gap metabolic acidosis. suspect pre renal noemy iso dehydration. #prerenal NOEMY Cr: 4.4 on admission,, downtrending to 2.9 with ivf baseline 0.8 Ddx: Consider pre vs intra vs post renal etiologies. suspect prerenal given hx of working in [employer] in the sun. minimal uop 300 ccs Dx - ctap with prostatomegaly,no hydronephrosis - BUN/Cr ratio: 18 - Daily CMP - pending renal US - pending urine protein creatnine ratio - strict i and o, barnard in place Tx - IV Fluids - Avoid nephrotoxic medications - Increased maintenance fluids to 90ml/hr LR #Electrolyte abnormalities #query RTA type 4 (hyperchloremia and hyperkalemia w hx DM) #hyperkalemia #hyperphospatemia #hyperchloremia #Non-anion gap metabolic acidosis, likely 2/2 uremia - cont bicitra #parkinsons #query autonomic dysfunction #asymptomatic bradycardia #t2dm #glucosuria 3+ -a1c pending #HLD #BPH on tamsulosin and finasteride #normocytic anemia - management per primary team Plan discussed with nephrology attending Dr. John Grimm MD Internal Medicine PGY-1 Attending Provider Attestation/Addendum Patient seen and examined with resident physician Dr. Grimm. Note reviewed, agree with findings and recommendations. gentleman with diabetes, hypertension, dyslipidemia. Was told to go to the ER for elevated BUN and creatinine. Patient goes to [facility]. Medications included ibuprofen, lisinopril/hydrochlorothiazide, metformin Clinically patient looks rather hypovolemic. Agree with holding off on all above medication and start IV fluids. BUN and creatinine tad better than last night. Urine electrolytes, renal ultrasound/prostate ultrasound ordered. Patient has Parkinson's with a significant resting tremor of the right hand-on carbidopa levodopa. Hyperkalemia, metabolic acidosis--secondary to NOEMY. Will continue Bicitra, 1 dose of Kayexalate. Monitor urine output closely. Urinalysis shows no proteinuria or hematuria. Urine chloride on the lower side consistent with prerenal azotemia.Abdominal pelvic CT showed significant prostatomegaly with no hydronephrosis. Thank you Dr. Mustafa for allowing me to participate in the care of Mr. Garcia
[2025-01-24] MEDS: INSULIN LISPRO (AdmeLOG) 1 UNIT/0.01 ML UNIT SC ×2 (12:06→21:14)
[2025-01-24] MEDS: FINASTERIDE 5 MG TABLET PO (14:34)
[2025-01-24] MEDS: CITRIC ACID/SODIUM CITR 15 ML UDC (BICITRA) 30 ML PO ×2 (14:34→21:14)
[2025-01-24 18:14] LABS: Albumin, Serum 4.2 gm/dL (3.4-4.8); Anion Gap 13 (7-16); BUN/Creatinine Ratio 18 Ratio (12-20); Blood Urea Nitrogen 52 mg/dL (9-23); Calcium 9.9 mg/dL (8.3-10.6); Calcium (Corrected) 9.9 mg/dL (8.5-10.1); Carbon Dioxide 20.6 mMol/L (20.0-31.0); Chloride 110 mMol/L (98-107); Creatinine (Component) 2.9 mg/dL (0.6-1.3); Estimated Creatinine Clearance 25.1 mL/min (>60); Glucose 149 mg/dL (74-106); Osmolality,Calculated 303 (275-295); Phosphorous 5.2 mg/dL (2.4-5.1); Potassium 4.8 mMol/L (3.4-5.1); Sodium 144 mMol/L (136-145); eGFR 23 See Note
--- NOTE | 2025-01-24 18:46 | XR_ITS ---
Examination: Retroperitoneal ultrasound, complete Technique: Multiple high resolution grayscale images of the retroperitoneum obtained, including kidneys and bladder. Exam date and time:January 24, 20252000 hours INDICATIONS: Acute renal insufficiency on chronic kidney disease this week FINDINGS: Right kidney 10.7 cm cortex 1.7 cm Left kidney 11.9 cm cortex 2.1 cm Moderate renal parenchymal scar formation No bladder mass or bladder calculi Bladder prevoid 5 259 cc, patient did not void Significant prostatomegaly 5. 4 x 4 by 6 x 6.5 cm volume 83 cc no prostate nodules IMPRESSION: Moderate renal parenchymal scar formation, no hydronephrosis Significant prostatomegaly
[2025-01-24] MEDS: ATORVASTATIN CALCIUM 20 MG TABLET PO (21:14)
[2025-01-24] MEDS: ACETAMINOPHEN 325 MG TABLET 650 MG PO (21:16)
[2025-01-24 23:47] LABS: Albumin, Serum 3.8 gm/dL (3.4-4.8); Anion Gap 11 (7-16); BUN/Creatinine Ratio 21 Ratio (12-20); Blood Urea Nitrogen 48 mg/dL (9-23); Calcium 9.4 mg/dL (8.3-10.6); Calcium (Corrected) 9.6 mg/dL (8.5-10.1); Carbon Dioxide 22.8 mMol/L (20.0-31.0); Chloride 110 mMol/L (98-107); Creatinine (Component) 2.3 mg/dL (0.6-1.3); Estimated Creatinine Clearance 31.2 mL/min (>60); Glucose 97 mg/dL (74-106); Osmolality,Calculated 299 (275-295); Phosphorous 4.5 mg/dL (2.4-5.1); Potassium 4.3 mMol/L (3.4-5.1); Sodium 144 mMol/L (136-145); eGFR 31 See Note
[2025-01-25] VITALS: BP 120/65; PULSE 50; PULSE 90; RESP 20; TEMP 36.8; O2SAT 95
[2025-01-25 04:00] VITALS: BP 149/78; PULSE 50; PULSE 61; RESP 15; TEMP 36.4; O2SAT 98
[2025-01-25] MEDS: CARBIDOPA/LEVODOPA 25/100 MG TABLET 1 TAB PO (05:23)
[2025-01-25] MEDS: HEPARIN SOD INJ 5000 UNIT/ML VIAL SC (05:24)
[2025-01-25 05:25] LABS: Protein Total, Random Urine 14 mg/dL (1-14)
[2025-01-25 05:41] VITALS: BMI 28.1
[2025-01-25] MEDS: RINGERS LACTATED 1000 ML 1,000 ML 75 ML IV (05:52)
[2025-01-25 06:25] LABS: Basophils # (Auto) 0.0 Thou/mm3 (0.0-0.2); Basophils % (Auto) 1 % (0-2.5); Eosinophils # (Auto) 0.4 Thou/mm3 (0.0-0.5); Eosinophils % (Auto) 7 % (0-10); Hematocrit 32.2 % (41.0-53.0); Hemoglobin 10.9 g/dL (13.5-16.0); Immature Granulocytes Auto 0.01 Thou/mm3 (0.00-0.00); Lymphocytes # (Auto) 0.9 Thou/mm3 (1.0-4.8); Lymphocytes % (Auto) 17 % (10-50); Mean Corpuscular HGB Conc 33.9 g/dl (31.0-37.0); Mean Corpuscular Hemoglobin 30.7 pg (25.0-35.0); Mean Corpuscular Volume 91 fL (80-100); Monocytes # (Auto) 0.5 Thou/mm3 (0.0-0.8); Monocytes % (Auto) 11 % (0-12); Neutrophils # (Auto) 3.2 Thou/mm3 (1.8-7.7); Neutrophils % (Auto) 64 % (37-80); Nucleated Red Blood Cell # 0.00 Thou/mm3 (0.00-0.00); Nucleated Red Blood Cell % 0 /100 WBC (0); Platelet Count 177 Thou/mm3 (140-440); RDW Standard Deviation 42.2 fL (35.1-43.9); Red Blood Count 3.55 Miln/mm3 (4.50-5.90); White Blood Count 5.0 Thou/mm3 (3.8-10.6)
[2025-01-25 07:02] LABS: Glucose Estimated Average 171 mg/dL (80-131); Hemoglobin A1C 7.6 % Hgb (4.8-6.0)
[2025-01-25 07:05] LABS: Alanine Aminotransferase < 7 U/L (10-49); Albumin, Serum 3.8 gm/dL (3.4-4.8); Albumin/Globulin Ratio 1.6 (1.2-2.2); Alkaline Phosphatase 86 U/L (46-116); Anion Gap 10 (7-16); Aspartate Amino Transferase 29 U/L (0-34); BUN/Creatinine Ratio 22 Ratio (12-20); Bilirubin,Total 0.7 mg/dL (0.3-1.2); Blood Urea Nitrogen 43 mg/dL (9-23); Calcium 9.5 mg/dL (8.3-10.6); Calcium (Corrected) 9.7 mg/dL (8.5-10.1); Carbon Dioxide 23.6 mMol/L (20.0-31.0); Chloride 110 mMol/L (98-107); Creatinine (Component) 2.0 mg/dL (0.6-1.3); Estimated Creatinine Clearance 35.7 mL/min (>60); Globulin 2.4 gm/dL (2.3-3.5); Glucose 137 mg/dL (74-106); Magnesium 2.0 mg/dL (1.6-2.6); Osmolality,Calculated 299 (275-295); Phosphorous 4.1 mg/dL (2.4-5.1); Potassium 4.7 mMol/L (3.4-5.1); Sodium 144 mMol/L (136-145); Total Protein 6.2 gm/dL (5.7-8.2); eGFR 37 See Note
[2025-01-25 08:00] VITALS: BP 157/83; PULSE 54; PULSE 59; RESP 19; TEMP 36.2; O2SAT 95
[2025-01-25] MEDS: CITRIC ACID/SODIUM CITR 15 ML UDC (BICITRA) 30 ML PO (08:07)
[2025-01-25] MEDS: TAMSULOSIN HCL 0.4 MG CAPSULE 0.8 MG PO (08:08)
[2025-01-25] MEDS: FINASTERIDE 5 MG TABLET PO (08:09)
--- NOTE | 2025-01-25 09:43 | PD.RESPRO ---
Documentation for date of: 01/25/25 Subjective Subjective Interval history: pt was seen at bedside today and is alert and oriented x3. pt was notified that his renal labs are trending back toward baseline. He was notified about the results of his renal ultrasound. he does not have any further questions or concerns at this time. Exam Vital Signs Temp Pulse Resp BP Pulse Ox O2 Del Method 97.2 F 54 L 19 157/83 H 95 Room Air 01/25/25 08:00 01/25/25 08:00 01/25/25 08:00 01/25/25 08:00 01/25/25 08:00 01/25/25 08:00 Narrative Exam General: A/O x3, no acute distress. Skin: Warm, dry, intact, no obvious rash. Head: Normocephalic, atraumatic. Eyes: EOMI. Anicteric, vision grossly intact. Ears: No ear pain, no ear discharge, Hearing grossly intact. Nose: No nasal discharge. Mouth/Throat: Oral mucosa moist. No obvious lesions in oropharynx. Neck: Neck supple, non-tender, no cervical lymphadenopathy. Cardiovascular: RRR, no murmur, no JVD or carotid bruits. +S1/S2. Respiratory: Bilateral lungs are clear to auscultation and percussion, respirations unlabored, no crackles, no wheezing. No accessory muscle use. Gastrointestinal: Suprapubic tenderness to palpation. Soft, non-distended, no palpable masses. No guarding or rebound tenderness. Extremities: Symmetrical, no significant deformities. No edema, no cyanosis, no clubbing. 2+ radial pulse bilaterally, 2+ posterior tibial pulse bilaterally. Neuro: Resting tremor in hands and arms, more pronounced on Right side. Conversant, moving all extremities. Psychiatric: Cooperative, appropriate affect. Objective Labs 01/25/25 05:29 01/25/25 05:29 Labs: Laboratory Results - last 24 hr 01/24/25 01/24/25 01/24/25 09:04 16:30 23:11 WBC 5.8 RBC 3.63 L Hgb 11.0 L Hct 33.4 L MCV 92 MCH 30.3 MCHC 32.9 RDW Std Deviation 42.9 Plt Count 194 Neut % (Auto) 70 Lymph % (Auto) 15 [place] % (Auto) 10 Eos % (Auto) 5 Baso % (Auto) 1 Neut # (Auto) 4.1 Lymph # (Auto) 0.9 L [place] # (Auto) 0.6 Eos # (Auto) 0.3 Baso # (Auto) 0.0 Immature Gran # (Auto) 0.01 H Absolute Nucleated RBC 0.00 Immature Gran % 0 Nucleated RBC % 0 Sodium 141 144 144 Potassium 5.3 H 4.8 D 4.3 D Chloride 108 H 110 H 110 H Carbon Dioxide 19.0 L 20.6 22.8 Anion Gap 14 13 11 BUN 52 H 52 H 48 H Creatinine 3.5 H D 2.9 H D 2.3 H D Estim Creat Clear Calc 20.8 L 25.1 L 31.2 L eGFR 19 L 23 L 31 L BUN/Creatinine Ratio 15 18 21 H Glucose 216 H D 149 H D [address] Glu mg/dL Hemoglobin A1c Calculated Osmolality 302 H 303 H 299 H Calcium 9.6 9.9 9.4 Corrected Calcium 9.6 9.9 9.6 Phosphorus 5.2 H 4.5 Magnesium Total Bilirubin 0.6 AST 16 ALT < 7 L Alkaline Phosphatase 83 Total Protein 7.2 Albumin 4.3 4.2 3.8 Globulin 2.9 Albumin/Globulin Ratio 1.5 U Random Total Protein 01/25/25 01/25/25 04:40 05:29 WBC 5.0 RBC 3.55 L Hgb 10.9 L Hct 32.2 L MCV 91 MCH 30.7 MCHC 33.9 RDW Std Deviation 42.2 Plt Count 177 Neut % (Auto) 64 Lymph % (Auto) 17 [place] % (Auto) 11 Eos % (Auto) 7 Baso % (Auto) 1 Neut # (Auto) 3.2 Lymph # (Auto) 0.9 L [place] # (Auto) 0.5 Eos # (Auto) 0.4 Baso # (Auto) 0.0 Immature Gran # (Auto) 0.01 H Absolute Nucleated RBC 0.00 Immature Gran % 0 Nucleated RBC % 0 Sodium 144 Potassium 4.7 Chloride 110 H Carbon Dioxide 23.6 Anion Gap 10 BUN 43 H Creatinine 2.0 H Estim Creat Clear Calc 35.7 L eGFR 37 L BUN/Creatinine Ratio 22 H Glucose [address] Glu mg/dL 171 H Hemoglobin A1c 7.6 H Calculated Osmolality 299 H Calcium 9.5 Corrected Calcium 9.7 Phosphorus 4.1 Magnesium 2.0 Total Bilirubin 0.7 AST 29 ALT < 7 L Alkaline Phosphatase 86 Total Protein 6.2 Albumin 3.8 Globulin 2.4 Albumin/Globulin Ratio 1.6 U Random Total Protein 14 ABG Interpretation ABG results: 01/24/25 00:55 ABG pH 7.29 L ABG pCO2 33 ABG pO2 206 H ABG HCO3 16 L ABG O2 Saturation 100 H ABG Base Excess -10 L Quality Measures Quality Measures VTE prophylaxis Assessment & Plan Assessment Current Active Medications: Generic Name Dose Route Start Last Admin Trade Name Freq PRN Reason Stop Dose Admin Acetaminophen 650 mg 01/24/25 00:43 01/24/25 21:16 Acetaminophen 325 Mg Tablet PO 02/23/25 00:42 650 mg Q6H PRN Administration PAIN SCALE 1-3 (mild Atorvastatin Calcium 20 mg 01/24/25 21:00 01/24/25 21:14 Atorvastatin Calcium 20 Mg Tablet PO 02/23/25 20:59 20 mg HS DANIELLE Administration Carbidopa/Levodopa 1 tab 01/24/25 06:00 01/25/25 05:23 Carbidopa/Levodopa 25/100 Mg Tablet PO 02/23/25 05:59 1 tab TID DANIELLE Administration Citric Acid/Sodium Citrate 30 ml 01/24/25 14:15 01/25/25 08:07 Citric Acid/Sodium Citr 15 Ml Udc (Bicitra) PO 02/23/25 14:14 30 ml BID DANIELLE Administration Dextrose 25 ml 01/24/25 02:28 Dextrose 50%-Water Inj 50 Ml Syringe IV 02/23/25 02:27 Q15MIN PRN BG 50-70 responsive npo pt Dextrose 50 ml 01/24/25 02:28 Dextrose 50%-Water Inj 50 Ml Syringe IV 02/23/25 02:27 Q15MIN PRN BG <50 OR BG <70 & pt unresponsive Finasteride 5 mg 01/24/25 14:15 01/25/25 08:09 Finasteride 5 Mg Tablet PO 02/23/25 14:14 5 mg QDAY DANIELLE Administration Glucagon 1 mg 01/24/25 02:28 Glucagon Inj 1 Mg Vial IM Q15MIN PRN BG <70, and no IV access Heparin Sodium (Porcine) 5,000 unit 01/24/25 09:30 01/25/25 05:24 Heparin Sod Inj 5000 Unit/Ml Vial SC 02/07/25 00:59 5,000 unit Q8HR DANIELLE Administration Lactated Ringer's 1,000 mls @ 75 mls/hr 01/24/25 00:45 01/25/25 05:52 Lactated Ringers IV 02/23/25 00:44 75 mls/hr .[id number] DANIELLE Administration Insulin Human Lispro 0 unit 01/24/25 07:30 01/25/25 07:56 Insulin Lispro (Admelog) 1 Unit/0.01 Ml Unit SC 02/23/25 07:29 Not Given ACHS DANIELLE Protocol Ondansetron HCl 4 mg 01/24/25 00:43 Ondansetron Inj 2 Mg/Ml Inj 2 Ml IVP 02/23/25 00:42 Q6H PRN NAUSEA OR VOMITING Protocol Ropinirole HCl 0.5 mg 01/24/25 02:45 01/25/25 08:09 Ropinirole Hcl 0.25 Mg Tablet PO 02/23/25 02:44 0.5 mg BID DANIELLE Administration Sennosides 1 tab 01/24/25 00:43 Senna Tablet PO 02/23/25 00:42 QDAY PRN constipation Protocol Sodium Chloride 3 ml 01/24/25 00:32 01/24/25 00:46 Sodium Chloride Rt [place]ora 0.9% 3 Ml Nebu INH 02/23/25 00:31 3 ml PRN PRN Administration SOLN Tamsulosin HCl 0.8 mg 01/25/25 09:00 01/25/25 08:08 Tamsulosin Hcl 0.4 Mg Capsule PO 02/24/25 08:59 0.8 mg QDAY DANIELLE Administration Plan 64M with PMH of Parkinson's disease, HTN, DM, and BPH who presents today after PCP sent him here for abnormal kidney lab values. Patient was admitted for the work-up and management of acute renal failure, hyperkalemia, and non-anion gap metabolic acidosis. Nephrology has been consulted for assistance in work-up of the etiology of the acute renal failure as well as management. #Acute renal failure #BPH Upon admission, creatinine 4.4 (baseline 0.7-1.2), BUN 64 (was 27 a week ago), eGFR 16 (was >60 a week ago) Differentials include postrenal obstructive etiology 2/2 BPH or urinary retention side effect from trihexyphenidyl and RTA (patient says he started it 2 months ago) Urine electrolytes: Cr 78, Na 57.4, K 34, Cl 51.9 Urinalysis shows no proteinuria or hematuria. Urine chloride on the lower side consistent with prerenal azotemia CTAP shows marked prostatomegaly and mild thickening of urinary bladder wall. Obstruction secondary to the patient's prostatomegaly suspected early urinary tract outflow obstruction secondary to the patient's prostatomegaly. Renal ultrasound was completed and showed moderate parenchymal thickening and severe prostatomegaly. Plan: - Consulted nephrology, appreciate recs - Pending bladder scan - Fluid resuscitation: IV LR maintenance fluid @ 75 mL/hr - Monitor urine output closely - Continue home tamsulosin 0.4 mg qD - Continue Bicitra - Ordered renal panel q12hr - Avoid nephrotoxic agents (aminoglycosides, NSAIDs, radiographic contrast) - Adjust medication dosing based on patient's impaired renal function - Holding home medication: lisinopril - Strict I's&O's + Salas catheter placement #Hyperkalemia Admission K 5.8, asymptomatic without EKG changes s/p IV calcium gluconate 1000 mg in 50 mL x1 in the ED PO Kayexalate 15 gm x1, Inhaled albuterol 10 mg x1, IV regular insulin 5 U x1 w/ D50 given K has improved to 4.7 Plan: -CTM #Non-anion gap metabolic acidosis Admission ABG acidic pH 7.29 with low HCO3 16, anion gap 13 Lactic acid and beta-hydroxybutyrate/acetoacetate WNL, differentials: uremia (BUN 63) vs drug induced RTA Plan: -Same management as acute renal failure above #Parkinson's disease Chronic. Recently started on trihexyphenidyl Significant resting tremor of the right hand. Plan: -Continue home medication: PO carbidopa/levodopa 1 tab TID -Holding home medication: trihexyphenidyl #HTN Last measurement: 140/79 Plan: -CTM -Holding home medication: lisinopril #HLD Plan: -Continue home medication: PO atorvastatin 20 mg qHS #T2DM Plan: -Insulin sliding scale -Holding home diabetes medications Hospital Management: Disposition: Admit to tele Diet: Renal GI Prophylaxis: none Bowel Prophylaxis: Senna DVT Prophylaxis: Heparin CODE STATUS: Full Code Plan discussed with my attending, Dr. Mustafa, and my senior resident, Dr. Alison Leonard (Med Student) Attending Provider Attestation/Addendum I Yue Mustafa MD reviewed the note and agree with the resident's assessment & plan with modifications/additions/exceptions as below. I have personally reviewed labs, imaging, home meds/prior records, examined the patient, formulated and discussed management plan with the IM team. A 64-year-old male with history of DM, parkinsonism, HTN, BPH noted to have significantly elevated creatinine and potassium levels detected i incidentally by PCP. Admitted for acute renal failure likely postrenal in etiology due to BPH. Serum creatinine has been improved significantly with resolution of hyperkalemia. Patient is nonoliguric, nephrology cleared patient for discharge. CT abdomen/pelvis did not reveal hydronephrosis. US kidney revealing moderate kidney disease. Patient likely has NOEMY on CKD in the setting of postrenal obstruction due to BPH. Increase tamsulosin to 0.8 mg daily, continue finasteride, follow-up in clinic and nephrology with repeat renal panel in 2-4 weeks.
--- NOTE | 2025-01-25 09:58 | CHAP ---
Patient was visited by the Spiritual Care Volunteer who prayed for them. (Volunteer was in the hospital from 09:40-09:48).
--- NOTE | 2025-01-25 11:44 | ESPR_ITS ---
Documentation for date of: 01/25/25 Subjective Subjective Interval history: Mr. Garcia is a 64 yo M with a hx of parkinsons (on trihexphenidyl), t2dm (dx > 20 years ago), HTN, and BPH who presented to the ED after pt was notified by pcp for abnormal labs with c/f noemy. Pt reports that he lopez general fatigue and mild headaches. ROS negative for nause, vomiting, diarrhea, edema, chest pain, shortness of breath he denies frequent nsaids use or recent contranst studies. He has never seen a emergency specialist. Social Hx: pt works in the [employer], frequently in the sun. In the ED, vitals showed: BP 130/79 HR 60 RR 20 Temp 99.0 SpO2 95% on room air ED Course: ABG showed low pH 7.29, low HCO3 16, and ABG base excess -10. CMP showed high K 5.8, slightly high chloride 110, low CO2 17.6, BUN 63, creatinine 4.4, eGFR 14, and high total CK 263. UA showed 3+ glucose UDS was negative. EKG: sinus bradycardia (HR 51, normal QTc 370) . In the ED, patient was given inhaled albuterol 10 mg, inhaled sodium chloride 3 mL, IV dextrose 50 mL x1, IV regular insulin 5 U x1, IV sodium bicarbonate 50 mEq x1, IV calcium gluconate/sodium chloride 1000 mg in 50 mL, IV albumin 12.5 gm, and PO kayexalate 15 gm x1 and started on IV heparin 5,000 U, IV LR maintenance fluid @ 75 mL/hr, and home medication PO ropinirole 0.5 mg BID. 01/24/2025 Patient admitted, Nephology consulted for noemy, pt seen and examined in the ED, pt has tremors in UE, reports that he works in the [employer] but hydrates regularly while working in the sun. hyperkalemia now wnl Cr 2.9 BUN 52 query prerenal noemy likely 2/2 dehydration, f/u labs pending renal ultrasound 01/25/2025: Patient seen and examined at bedside. He denies any urinary hesitancy at this time, is able to comfortably pass urine. He does endorse mild discomfort suprapubically post urination. Patient was counseled extensively on close renal and urology follow-up. He will need a referral from PCP to see urologist outpatient for significant BPH noted on scan, 83 cc volume, consistent with marked prostatomegaly. 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 Nephrology recommendations: Discharge on finasteride + strict instructions for outpatient urology follow-up + close nephrology follow- up outpatient. Exam Vital Signs Temp Pulse Resp BP Pulse Ox O2 Del Method 97.2 F 54 L 19 157/83 H 95 Room Air 01/25/25 08:00 01/25/25 08:00 01/25/25 08:00 01/25/25 08:00 01/25/25 08:00 01/25/25 08:00 Narrative Exam Constitutional Alert, oriented x3 and comfortable HEENT Vision grossly intact, PERRL. Patent nares. Trachea midline. Respiratory Chest normal on inspection and clear to auscultation bilaterally. Cardiovascular S1 and S2 audible, RRR. No murmurs or carotid bruit. No gross JVD. Abdominal Soft and BS + ; non tender to palpation in all quadrants. Genitourinary No bladder tenderness, no flank pain. Normal to palpation. Musculoskeletal Extremities tone within normal limits. RUE pill-rolling tremor 2/2 Parkinson's. No LE edema. Neurological CN II - XII grossly intact. Extremity motor and sensation grossly intact. Skin Warm, dry and intact. No apparent lesions. Psychiatric Patient has a good affect, is cooperative. Objective Labs 01/25/25 05:29 01/25/25 05:29 Labs: Laboratory Results - last 24 hr 01/24/25 01/24/25 01/25/25 16:30 23:11 04:40 WBC RBC Hgb Hct MCV MCH MCHC RDW Std Deviation Plt Count Neut % (Auto) Lymph % (Auto) Gulf % (Auto) Eos % (Auto) Baso % (Auto) Neut # (Auto) Lymph # (Auto) [place] # (Auto) Eos # (Auto) Baso # (Auto) Immature Gran # (Auto) Absolute Nucleated RBC Immature Gran % Nucleated RBC % Sodium 144 144 Potassium 4.8 D 4.3 D Chloride 110 H 110 H Carbon Dioxide 20.6 22.8 Anion Gap 13 11 BUN 52 H 48 H Creatinine 2.9 H D 2.3 H D Estim Creat Clear Calc 25.1 L 31.2 L eGFR 23 L 31 L BUN/Creatinine Ratio 18 21 H Glucose 149 H D [address] Glu mg/dL Hemoglobin A1c Calculated Osmolality 303 H 299 H Calcium 9.9 9.4 Corrected Calcium 9.9 9.6 Phosphorus 5.2 H 4.5 Magnesium Total Bilirubin AST ALT Alkaline Phosphatase Total Protein Albumin 4.2 3.8 Globulin Albumin/Globulin Ratio U Random Total Protein 14 01/25/25 05:29 WBC 5.0 RBC 3.55 L Hgb 10.9 L Hct 32.2 L MCV 91 MCH 30.7 MCHC 33.9 RDW Std Deviation 42.2 Plt Count 177 Neut % (Auto) 64 Lymph % (Auto) 17 Gulf % (Auto) 11 Eos % (Auto) 7 Baso % (Auto) 1 Neut # (Auto) 3.2 Lymph # (Auto) 0.9 L [place] # (Auto) 0.5 Eos # (Auto) 0.4 Baso # (Auto) 0.0 Immature Gran # (Auto) 0.01 H Absolute Nucleated RBC 0.00 Immature Gran % 0 Nucleated RBC % 0 Sodium 144 Potassium 4.7 Chloride 110 H Carbon Dioxide 23.6 Anion Gap 10 BUN 43 H Creatinine 2.0 H Estim Creat Clear Calc 35.7 L eGFR 37 L BUN/Creatinine Ratio 22 H Glucose [address] Glu mg/dL 171 H Hemoglobin A1c 7.6 H Calculated Osmolality 299 H Calcium 9.5 Corrected Calcium 9.7 Phosphorus 4.1 Magnesium 2.0 Total Bilirubin 0.7 AST 29 ALT < 7 L Alkaline Phosphatase 86 Total Protein 6.2 Albumin 3.8 Globulin 2.4 Albumin/Globulin Ratio 1.6 U Random Total Protein ABG Interpretation ABG results: 01/24/25 00:55 ABG pH 7.29 L ABG pCO2 33 ABG pO2 206 H ABG HCO3 16 L ABG O2 Saturation 100 H ABG Base Excess -10 L Quality Measures Quality Measures VTE prophylaxis Assessment & Plan Assessment Current Active Medications: Generic Name Dose Route Start Last Admin Trade Name Freq PRN Reason Stop Dose Admin Acetaminophen 650 mg 01/24/25 00:43 01/24/25 21:16 Acetaminophen 325 Mg Tablet PO 02/23/25 00:42 650 mg Q6H PRN Administration PAIN SCALE 1-3 (mild Atorvastatin Calcium 20 mg 01/24/25 21:00 01/24/25 21:14 Atorvastatin Calcium 20 Mg Tablet PO 02/23/25 20:59 20 mg HS DANIELLE Administration Carbidopa/Levodopa 1 tab 01/24/25 06:00 01/25/25 05:23 Carbidopa/Levodopa 25/100 Mg Tablet PO 02/23/25 05:59 1 tab TID DANIELLE Administration Citric Acid/Sodium Citrate 30 ml 01/24/25 14:15 01/25/25 08:07 Citric Acid/Sodium Citr 15 Ml Udc (Bicitra) PO 02/23/25 14:14 30 ml BID DANIELLE Administration Dextrose 25 ml 01/24/25 02:28 Dextrose 50%-Water Inj 50 Ml Syringe IV 02/23/25 02:27 Q15MIN PRN BG 50-70 responsive npo pt Dextrose 50 ml 01/24/25 02:28 Dextrose 50%-Water Inj 50 Ml Syringe IV 02/23/25 02:27 Q15MIN PRN BG <50 OR BG <70 & pt unresponsive Finasteride 5 mg 01/24/25 14:15 01/25/25 08:09 Finasteride 5 Mg Tablet PO 02/23/25 14:14 5 mg QDAY DANIELLE Administration Glucagon 1 mg 01/24/25 02:28 Glucagon Inj 1 Mg Vial IM Q15MIN PRN BG <70, and no IV access Heparin Sodium (Porcine) 5,000 unit 01/24/25 09:30 01/25/25 05:24 Heparin Sod Inj 5000 Unit/Ml Vial SC 02/07/25 00:59 5,000 unit Q8HR DANIELLE Administration Lactated Ringer's 1,000 mls @ 75 mls/hr 01/24/25 00:45 01/25/25 05:52 Lactated Ringers IV 02/23/25 00:44 75 mls/hr .[id number] DANIELLE Administration Insulin Human Lispro 0 unit 01/24/25 07:30 01/25/25 07:56 Insulin Lispro (Admelog) 1 Unit/0.01 Ml Unit SC 02/23/25 07:29 Not Given ACHS DANIELLE Protocol Ondansetron HCl 4 mg 01/24/25 00:43 Ondansetron Inj 2 Mg/Ml Inj 2 Ml IVP 02/23/25 00:42 Q6H PRN NAUSEA OR VOMITING Protocol Ropinirole HCl 0.5 mg 01/24/25 02:45 01/25/25 08:09 Ropinirole Hcl 0.25 Mg Tablet PO 02/23/25 02:44 0.5 mg BID DANIELLE Administration Sennosides 1 tab 01/24/25 00:43 Senna Tablet PO 02/23/25 00:42 QDAY PRN constipation Protocol Sodium Chloride 3 ml 01/24/25 00:32 01/24/25 00:46 Sodium Chloride Rt Lora 0.9% 3 Ml Nebu INH 02/23/25 00:31 3 ml PRN PRN Administration SOLN Tamsulosin HCl 0.8 mg 01/25/25 09:00 01/25/25 08:08 Tamsulosin Hcl 0.4 Mg Capsule PO 02/24/25 08:59 0.8 mg QDAY DANIELLE Administration Plan Mr Woods is a 64M with PMH of Parkinson's disease, HTN, DM, and BPH who presents today after PCP sent him here for abnormal kidney lab values. Patient was admitted for the work-up and management of acute renal failure, hyperkalemia now resolved, and non-anion gap metabolic acidosis. suspect pre renal noemy iso dehydration. Post-renal NOEMY Pre-renal NOEMY Secondary to BPH , significant prostatomegaly 82 cc volume Dehydration - Cr: 4.4 on admission. Baseline Cr @ 0.8. - CT A/P: shows marked prostatomegaly, prostate volume 83 cc - RFT: Cr 4.4 -> 2.3 -> 2 and GFR 14 --> 37 Plan: - Hyperkalemia resolved. K 4.7 after Bicitra, 1 dose of Kayexalate. 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 - Can discharge, please recommend referral from PCP to see urologist outpatient. - Advise close nephrology follow-up outpatient. Other medical problems: Parkinsons - RUE pill-rolling tremor Asymptomatic bradycardia -On carbidopa levodopa T2 NIDDM HLD - A1c 7.6 on 01/23 - Continue home metformin 1 g twice daily Normocytic anemia - management per primary team Plan discussed with nephrology attending Dr. John Eastman M.D. PGY3 Disclaimer: Minor errors in autobody technician may be present as this note was dictated using voice recognition software. Attending Provider Attestation/Addendum Patient seen and examined with resident physician Dr. Eastman. Note reviewed, agree with findings and recommendations. gentleman with diabetes, hypertension, dyslipidemia. Was told to go to the ER for elevated BUN and creatinine. Patient [facility]. Medications included ibuprofen, lisinopril/hydrochlorothiazide, metformin Clinically patient looks rather hypovolemic. Agree with holding off on all above medication and start IV fluids. BUN and creatinine tad better than last night. Urine electrolytes, renal ultrasound/prostate ultrasound ordered. Patient has Parkinson's with a significant resting tremor of the right hand-on carbidopa levodopa. Hyperkalemia, metabolic acidosis--secondary to NOEMY. Will continue Bicitra, 1 dose of Kayexalate. Monitor urine output closely. Urinalysis shows no proteinuria or hematuria. Urine chloride on the lower side consistent with prerenal azotemia.Abdominal pelvic CT showed significant prostatomegaly with no hydronephrosis. 01/25/2025 patient doing much better. Pacing around. Creatinine improved to 2.0. Suggested to follow-up with me in my office in 1 to 2 weeks. Spoke to primary team-can be discharged on finasteride along with tamsulosin. Needs outpatient urology follow-up for huge prostatomegaly. Thank you Dr. Mustafa for allowing me to participate in the care of Mr. Garcia
[2025-01-25 12:00] VITALS: BP 140/79; PULSE 50; PULSE 56; RESP 16; TEMP 36.3; O2SAT 97
[2025-01-25] MEDS: INSULIN LISPRO (AdmeLOG) 1 UNIT/0.01 ML UNIT SC (12:10)
--- NOTE | 2025-01-25 15:53 | ESDS_ITS ---
Planned Discharge Date 01/25/25 DS: Providers Provider Date of admission: 01/24/25 00:43 Primary care physician: Physician No Primary/Family Admitting Provider: Felix Burton MD Attending Provider on Admission: Felix Burton MD Consults: 01/24/25 00:56 Consult to Nephrology Stat Comment: Consulting Provider: Herve Lopez Attending Provider on DC: Hector Mustafa MD Discharging Provider: Candice Bautista DS: Diagnosis Problem List Completed Was Problem List Reviewed/Reconciled?: Yes Hospital Course Hospital Course Hospital course: Pt is a 64 y.o M with PMH of Parkinson's disease, HTN, DM, and BPH who presented to the ED after PCP sent him here for abnormal kidney lab values. Patient was admitted for the work-up and management of acute renal failure, hyperkalemia, and non-anion gap metabolic acidosis. Nephrology was consulted for assistance in work-up of the etiology of the acute renal failure as well as management. Per nephrology, prerenal ludy likely differential for acute renal failure secondary to 2/2 dehydration. A renal ultrasound was also conducted during his stay in the hospital which showed moderate renal parenchymal thickening and severe prostatomegaly. Pt was continued on his home medications of finasteride and tamsulosin to treat his prostatomegaly. Per nephrology recommendations, discharge on finasteride + strict instructions for outpatient urology follow-up + close nephrology follow-up outpatient. Pt was also noted to have hyperkalemia at the time of admission. Pt was given calcium gluconate which brought back potassium levels to normal parameters. Pt was continued on his home medications for his chronic conditions throughout the course of his hospital stay. Pt is medically stable at time of discharge #Acute renal failure #BPH #Hyperkalemia #Non-anion gap metabolic acidosis #Parkinson's disease #HTN #HLD #T2DM Plan discussed with my attending, Dr. Mustafa, and my senior resident, Dr. Rosas Status at Discharge Functional status at discharge: independent ambulation Overall status at discharge: patient is back to baseline Time Spent with Patient Time attestation: Total time spent providing and/or coordinating discharge services: Time spent: Greater than 30 minutes Exam Vital Signs Temp Pulse Resp BP Pulse Ox O2 Del Method 97.4 F 50 L 16 140/79 H 97 Room Air 01/25/25 12:00 01/25/25 12:00 01/25/25 12:00 01/25/25 12:00 01/25/25 12:00 01/25/25 12:00 Narrative Exam General: A/O x3, no acute distress. Skin: Warm, dry, intact, no obvious rash. Head: Normocephalic, atraumatic. Eyes: EOMI. Anicteric, vision grossly intact. Ears: No ear pain, no ear discharge, Hearing grossly intact. Nose: No nasal discharge. Mouth/Throat: Oral mucosa moist. No obvious lesions in oropharynx. Neck: Neck supple, non-tender, no cervical lymphadenopathy. Cardiovascular: RRR, no murmur, no JVD or carotid bruits. +S1/S2. Respiratory: Bilateral lungs are clear to auscultation and percussion, respirations unlabored, no crackles, no wheezing. No accessory muscle use. Gastrointestinal: Suprapubic tenderness to palpation. Soft, non-distended, no palpable masses. No guarding or rebound tenderness. Extremities: Symmetrical, no significant deformities. No edema, no cyanosis, no clubbing. 2+ radial pulse bilaterally, 2+ posterior tibial pulse bilaterally. Neuro: Resting tremor in hands and arms, more pronounced on Right side. Conversant, moving all extremities. Psychiatric: Cooperative, appropriate affect. Discharge Plan Plan Patient Disposition: HOME (Self Care) Patient condition on transfer: Stable Care Plan Goals: Your tamsulosin dose was increased from 0.4 mg to 0.8 mg daily. Start taking finasteride 5 mg daily. Increase daily fluid intake. Continue other home medications as prescribed. Follow up with PCP within 2 week, obtain referral to urology. Should your symptoms recur or worsen patient is instructed to return to the ED. Prescriptions/Referrals Prescriptions/Med Rec: New tamsulosin [Flomax] 0.4 mg capsule 0.8 mg PO QDAY Qty: 60 2RF finasteride 5 mg tablet 5 mg PO QDAY Qty: 30 2RF Continued metformin [Glucophage] 1,000 MG tablet 1,000 mg PO BID Qty: 0 amlodipine 10 mg Tablet 10 mg PO QDAY lisinopril-hydrochlorothiazide 20-25 mg Tablet 1 tab PO QDAY ibuprofen 800 mg tablet 800 mg PO Q8H PRN (Reason: pain) Qty: 30 0RF phenazopyridine [Pyridium] 200 mg tablet 200 mg PO TID Qty: 6 0RF Discontinued tamsulosin 0.4 mg Capsule 0.4 mg PO QDAY Referrals: No Primary/Family,Physician [Primary Care Provider] - Patient/Caregiver Discharge Instructions Print Language: [place] Stand Alone Forms: Anh Award Info., Patient Portal Info Letter Discharge Order Discharge Orders: Discharge (Routine); Ordered 01/25/25 Ordered By: Onur Rosas Quality Discharge Quality Measures none
== END 2025-01-25 15:26 | disposition home or self-care (01) | DRG 469 ==
LOC: SERX 01-24 00:12 → SERHOLD 01-24 01:22 → S2NX 01-24 10:57
PROVIDERS: Physician Assistant; Student in an Organized Health Care Education/Training Program; Admitting Provider Student in an Organized Health Care Education/Training Program; Emergency Provider Emergency Medicine; Visit Provider Student in an Organized Health Care Education/Training Program
DX: N17.9 Acute kidney failure, unspecified (principal); E87.5 Hyperkalemia; E87.20 Acidosis, unspecified; G20.A1 Parkinson's disease without dyskinesia, without mention of fluctuations; E11.22 Type 2 diabetes mellitus with diabetic chronic kidney disease; E11.65 Type 2 diabetes mellitus with hyperglycemia; E78.5 Hyperlipidemia, unspecified; E86.0 Dehydration; E86.1 Hypovolemia; I12.9 Hypertensive chronic kidney disease with stage 1 through stage 4 chronic kidney disease, or unspecified chronic kidney disease; N18.9 Chronic kidney disease, unspecified; R33.8 Other retention of urine; N13.8 Other obstructive and reflux uropathy; D63.1 Anemia in chronic kidney disease; N40.1 Benign prostatic hyperplasia with lower urinary tract symptoms; G25.2 Other specified forms of tremor; Z79.4 Long term (current) use of insulin; Z79.84 Long term (current) use of oral hypoglycemic drugs
CPT/HCPCS: 36415; 36600; 74176; 76770; 80053; 80061; 80069; 80307; 81001; 82010; 82436; 82550; 82570; 82803; 83036; 83605; 83735; 84100; 84133; 84156; 84300; 85025; 93005; 94644; 96361; 96365; 96366; 99285; J0613; J1644; J1815; J7120; P9047; A9270

== ENCOUNTER 2025-04-19 17:42 | Emergency (ER) | payer MEDICAID, SELFPAY ==
[2025-04-19 19:00] VITALS: BP 130/80; PULSE 58; RESP 18; TEMP 36.9; O2SAT 95; BMI 26.9
--- NOTE | 2025-04-19 19:05 | XR_ITS ---
Examination: CT brain head without contrast. 2-D sagittal coronal reconstructions Date and time of exam: April 19, 2025, 1920 hours, comparison January 17 2025 INDICATIONS: Headache and weakness today, diagnosis Parkinson's disease CTDI: vol (mGy): 49.1 DLP: (mGycm): 904 Technique: Multiple CT axial sections of the brain have been obtained, 5 mm slice thickness. Contrast has not been administered. 2-D sagittal, coronal reconstructions have been obtained Low dose protocols were performed. One or more of the following dose reduction techniques were used; automated exposure control, adjustment of the mA and/or KV according to patient size, use of iterative reconstruction technique. Findings: No significant ventricular enlargement. Intra-axial or extra-axial hemorrhage density is not seen. No mass effect or midline shift Basal cisterns are not remarkable. Fourth ventricle is midline. Cranial vault intact. Impression: Negative for acute hemorrhage, mass effect or midline shift Advise clinical correlation and follow-up accordingly
--- NOTE | 2025-04-19 19:06 | PD.EDRME ---
Rapid Medical Screening Exam RME Arrival date/time: 04/19/25 17:42 This is a case of 65-year-old male with history of hypertension who came in in the emergency room due to headache chest pain on and off for 1 month worsening of the symptoms this patient decided to start consulted in the emergency room Chief Complaint: General Adult/Misc Complain Time Seen by Provider: 04/19/25 18:30 Vital signs: Vital Signs Temperature 98.5 F 04/19/25 19:00 Pulse Rate 58 L 04/19/25 19:00 Respiratory Rate 18 04/19/25 19:00 Blood Pressure 130/80 04/19/25 19:00 Pulse Oximetry (%) 95 04/19/25 19:00 Oxygen Delivery Method Room Air 04/19/25 19:00 Exam: NRRR no murmur no edema clear breath sounds neurological exam is normal Clinical Impression: Headache chest pain
[2025-04-19 19:18] LABS: Basophils # (Auto) 0.1 Thou/mm3 (0.0-0.2); Basophils % (Auto) 1 % (0-2.5); Eosinophils # (Auto) 1.3 Thou/mm3 (0.0-0.5); Eosinophils % (Auto) 17 % (0-10); Hematocrit 35.9 % (41.0-53.0); Hemoglobin 11.9 g/dL (13.5-16.0); Immature Granulocytes Auto 0.01 Thou/mm3 (0.00-0.00); Lymphocytes # (Auto) 1.9 Thou/mm3 (1.0-4.8); Lymphocytes % (Auto) 25 % (10-50); Mean Corpuscular HGB Conc 33.1 g/dl (31.0-37.0); Mean Corpuscular Hemoglobin 30.4 pg (25.0-35.0); Mean Corpuscular Volume 92 fL (80-100); Monocytes # (Auto) 0.7 Thou/mm3 (0.0-0.8); Monocytes % (Auto) 9 % (0-12); Neutrophils # (Auto) 3.7 Thou/mm3 (1.8-7.7); Neutrophils % (Auto) 48 % (37-80); Nucleated Red Blood Cell # 0.00 Thou/mm3 (0.00-0.00); Nucleated Red Blood Cell % 0 /100 WBC (0); Platelet Count 251 Thou/mm3 (140-440); RDW Standard Deviation 42.5 fL (35.1-43.9); Red Blood Count 3.91 Miln/mm3 (4.50-5.90); White Blood Count 7.8 Thou/mm3 (3.8-10.6)
[2025-04-19 19:34] LABS: B-Type Natriuretic Peptide 89 pg/mL (0-100)
[2025-04-19 19:36] LABS: Alanine Aminotransferase 27 U/L (10-49); Albumin, Serum 4.5 gm/dL (3.4-4.8); Albumin/Globulin Ratio 1.6 (1.2-2.2); Alkaline Phosphatase 85 U/L (46-116); Anion Gap 9 (7-16); Aspartate Amino Transferase 28 U/L (0-34); BUN/Creatinine Ratio 12 Ratio (12-20); Bilirubin,Total 0.4 mg/dL (0.3-1.2); Blood Urea Nitrogen 17 mg/dL (9-23); Calcium 9.7 mg/dL (8.3-10.6); Calcium (Corrected) 9.7 mg/dL (8.5-10.1); Carbon Dioxide 23.7 mMol/L (20.0-31.0); Chloride 106 mMol/L (98-107); Creatinine (Component) 1.4 mg/dL (0.6-1.3); Estimated Creatinine Clearance 47.5 mL/min (>60); Globulin 2.8 gm/dL (2.3-3.5); Glucose 177 mg/dL (74-106); Osmolality,Calculated 283 (275-295); Potassium 4.5 mMol/L (3.4-5.1); Sodium 139 mMol/L (136-145); Total Protein 7.3 gm/dL (5.7-8.2); Troponin I < 0.020 ng/mL (0.0-0.045); eGFR 56 See Note
[2025-04-19 19:48] LABS: Collection Type, Urine Clean Catch; Squamous Epithelial Cell,Urine 0 /hpf (0-5)
[2025-04-19 20:03] VITALS: BP 138/76; PULSE 53; RESP 18; TEMP 37.1; O2SAT 95
--- NOTE | 2025-04-19 20:03 | EKG_ITS ---
[facility] Test Date: 2025-04-19 Pat Name: EDGAR ARREAGA Department: Room: - Gender: Male And [employer] In[employer]ley: : 1960 Requested By: Demetri Moura Order Number: [id number] Reading MD: Demetri Moura Measurements Intervals [place] Rate: 52 P: 117 DE: 186 QRS: -9 QRSD: 99 T: 29 QT: 405 QTc: 379 Interpretive Statements SINUS BRADYCARDIA Compared to ECG 01/24/2025 00:03:14 No significant changes /store/S0/[id number]
--- NOTE | 2025-04-19 20:07 | EDNOTE_ITS ---
ED General RME/HPI General Chief complaint: General Adult/Misc Complain Stated complaint: HEADACHE, C/P X 1 MONTH WORSE TODAY, ABD PAIN Time Seen by Provider: 04/19/25 18:30 Arrival date/time: 04/19/25 17:42 CC: Headache and chest pain ongoing intermittent for the past several months. Patient does not take any medicines for his parkinsonian's as it made him feel worse, and he has not seen his doctor for new prescription. Patient denies shortness of breath or difficulty breathing at this time. RME / HPI RME / HPI narrative: 04/19/25 17:42 This is a case of 65-year-old male with history of hypertension who came in in the emergency room due to headache chest pain on and off for 1 month worsening of the symptoms this patient decided to start consulted in the emergency room Exam: NRRR no murmur no edema clear breath sounds neurological exam is normal Impression: Headache chest pain Related Data Home Medications ?Medication ?Instructions ?Recorded ?Confirmed metformin 1,000 mg tablet 1,000 mg PO BID #0 tabs 11/0312/20/19 (Glucophage) amlodipine 10 mg tablet 10 mg PO QDAY 12/20/1912/19 lisinopril 20 1 tab PO QDAY 12/20/1912/19 mg-hydrochlorothiazide 25 mg tablet Previous Rx's ?Medication ?Instructions ?Recorded ibuprofen 800 mg tablet 800 mg PO Q8H PRN pain #30 t abs 01/17/25 phenazopyridine 200 mg tablet 200 mg PO TID 6 doses #6 tabs 01/17/25 (Pyridium) finasteride 5 mg tablet 5 mg PO QDAY #30 tabs tamsulosin 0.4 mg capsule (Flomax) 0.8 mg (2 x 0.4 mg) PO QDAY #60 01/25/25 caps Allergies Allergy/AdvReac Type Severity Reaction Status Date / Time No Known Allergies Allergy Verified 04/19/25 17:46 Review of Systems Review of Systems Narrative Review of Systems: GEN: No fever, no chills, no weight loss EYES: No discharge, no visual changes, no pain HEENT: No ear pain, no congestion, no sore throat PULM: No shortness of breath, no cough, no congestion CV: + chest pain, no dyspnea on exertion, no palpitations GI: No nausea, no vomiting, no diarrhea, no pain, no constipation : No frequency, no urgency, no dysuria MUSC/SKEL: No joint pain, no back pain SKIN: No rash PSYCH: No hallucinations, no depression HEME/LYMPH: No easy bleeding or bruising tendencies NEURO: No weakness, + headache Past Medical History Past Medical History NEUROLOGIC: Positive Parkinson's Disease; Negative Neurological Disorders CARDIAC: Positive Hypertension; Negative Cardiac Disorders or Congestive Heart Failure RESPIRATORY: Negative Chronic Obstructive Pulmonary Disease (COPD) or Asthma GENITOURINARY: Positive Benign Prostatic Hyperplasia; Negative Renal Disease MUSCULOSKELETAL: Negative Musculoskeletal Disorders ENDOCRINE: Positive Diabetes Mellitus Type 2; Negative Diabetes Mellitus Type 1 HEMATOLOGIC: Negative Blood Disorders or Sickle Cell Disease OTHER HISTORY: Negative Autoimmune Disease, Anesthesia Reactions, Organ Transplant, MRSA, Clostridium Difficile or Cancer Family History FAMILY HISTORY: Negative Family Cardiac Disorders Surgical History SURGICAL: Negative Endocrine Surgery, Ear Surgery, Abdominal Surgery, Joint Replacement, Neurologic Surgery, Mastectomy, Vasectomy or Organ Transplant Social History SMOKING STATUS: Never smoker SUBSTANCE USE: does not use ED Exam Narrative Physical exam: [General: Not in any acute distress Head normocephalic HEENT: Within acceptable limits Neck is supple nontender Chest equal chest rise nontender to palpation Respiratory: Clear to auscultation no wheezes crackles or rubs CV: Rate rhythm is regular no murmurs rubs or clicks Abdomen is distended secondary to body habitus soft nontender no masses positive bowel sounds all 4 quadrants Back: No CVA tenderness no spinous process tenderness from cervical spine thoracic and lumbar spine Skin: Intact no petechiae rash induration ulceration or crepitus Extremities: Right hand tremens (attributed to Parkinson's) moving all other extremities against resistance cap refill less than 2 seconds neurosensory intact Neuro: Awake alert oriented x3 Glascow coma 15 no focal deficits] Course Quality Measures none Orders Category Date Time Status EKG (ED ONLY) *Do not use* NOW Care 04/19/25 20:[address] head/brain wo con Stat Exams 04/19/25 19:05 Completed EKG (ED Only) Stat Exams 04/19/25 20:03 Draft BNP [B-Type Natriuretic Peptide] Stat Lab 04/19/25 19:13 Completed CBC Stat Lab 04/19/25 19:13 Completed Comprehensive Metabolic Panel Stat Lab 04/19/25 19:13 Completed Troponin I Stat Lab 04/19/25 19:13 Completed Urinalysis Stat Lab 04/19/25 19:42 Completed Vital Signs Vital signs: Vital Signs Temperature 98.5 F 04/19/25 19:00 Pulse Rate 58 L 04/19/25 19:00 Respiratory Rate 18 04/19/25 19:00 Blood Pressure 130/80 04/19/25 19:00 Pulse Oximetry (%) 95 04/19/25 19:00 Oxygen Delivery Method Room Air 04/19/25 19:00 Discharge Plan Plan Patient Disposition: HOME (Self Care) Patient condition on transfer: Stable Prescriptions/Referrals Prescriptions/Med Rec: No Action metformin [Glucophage] 1,000 MG tablet 1,000 mg PO BID Qty: 0 amlodipine 10 mg Tablet 10 mg PO QDAY lisinopril-hydrochlorothiazide 20-25 mg Tablet 1 tab PO QDAY ibuprofen 800 mg tablet 800 mg PO Q8H PRN (Reason: pain) Qty: 30 0RF phenazopyridine [Pyridium] 200 mg tablet 200 mg PO TID Qty: 6 0RF tamsulosin [Flomax] 0.4 mg capsule 0.8 mg PO QDAY Qty: 60 2RF finasteride 5 mg tablet 5 mg PO QDAY Qty: 30 2RF Referrals: Woody Espinosa MD [Primary Care Provider, Family Practice] - In 1 week Problem List Clinical Impression: Headache, Chest pain Patient/Caregiver Discharge Instructions Education Materials: Self-Care for Headaches, ED Chest Pain, Uncertain Cause Print Language: Guyanese Stand Alone Forms: Anh Award Info., Patient Portal Info Letter PA/[employer] Supervising Physician PA/[employer] Supervising Physician: Demetri Cooper ENP [facility] Clinical Information Provided by: patient Medical Records reviewed [facility] Meds/Rx considered, not ordered None Labs/Rad/Tests considered, not ordered None Chronic Illness/Social Conditions Explain: Hypertension EKG Interpretation EKG #1: EKG Interpretation: EKG performed at 2010 shows a ventricular rate of 5 2 IA interval of 186 QRS of 99 QTc of 386 bradycardia. When compared to old EKG of January 2025 the patient remains bradycardic. Labs Labs: interpreted by [place] Lab(s) Interpretation(s): CBC shows no acute leukocytosis patient has a stable anemia with a hemoglobin of 11.9 and 35.9 respectively. No thrombocytopenia CMP shows a creatinine 1.4 glucose of 177 no other electrolyte imbalances renal impairment transaminitis or T. bili elevation Troponin and BNP within acceptable limits Imaging Imaging interpretation: interpreted by me Imaging Interpretation(s): CT of the head is negative for any acute finding.
[2025-04-19 20:16] LABS: Bilirubin,Urine Negative (Negative); Blood,Urine Negative (Negative); Clarity,Urine Clear (Clear/Hazy); Color,Urine Lt-Yellow (Lt Yel-Yel); Glucose, Urine 4+ (Negative); Ketones,Urine Negative (Negative); Leukocyte Esterase,Urine Negative (Negative); Nitrite,Urine Negative (Negative); PH,Urine 6.0 (5.0-7.0); Protein,Urine Negative (Neg - Trace); RBC,Urine 1 /hpf (0-3); Specific Gravity,Urine 1.015 (1.001-1.035); Urobilinogen,Urine Negative mg/dL (0.0-1.0); WBC,Urine < 1 /hpf (0-5)
== END 2025-04-19 21:37 | disposition home or self-care (01) ==
PROVIDERS: Nurse Practitioner Family; Emergency Provider Emergency Medicine; PCP Family Medicine
DX: R51.9 Headache, unspecified (principal); R07.9 Chest pain, unspecified
CPT/HCPCS: 36415; 70450; 80053; 81001; 83880; 84484; 85025; 93005; 99283